=== PATIENT | female | born 1935 | race Caucasian/White ===

== ENCOUNTER 2019-03-15 09:16 | Emergency (ER) | payer OTHER ==
--- NOTE | 2019-03-15 10:41 | EDPHYS ---
Physician Documentation [facility] Name: Maxx Barr Age: 83 yrs Sex: Female : 1935 Arrival Date: 03/15/2019 Time: 09:18 Bed 11 Private MD: ED Physician Roberto Carlos Corey HPI: 03/15 10:34 This 83 yrs old Female presents to ER via Wheelchair with complaints of Knee ma2 Pain. 10:34 Onset: The symptoms/episode began/occurred gradually, 3 day(s) ago. Context: The ma2 problem was sustained at home. Associated signs and symptoms: Pertinent negatives: nausea, swelling, vomiting. Severity of symptoms: At their worst the symptoms were moderate, in the emergency department the symptoms are unchanged. The patient has not experienced similar symptoms in the past. Historical: - Allergies: 09:29 Latex, Natural Rubber; hb - Home Meds: 09:29 amlodipine 5 mg tab 1 tab once daily [Active]; aspirin 81 mg Oral chew 1 tab once daily hb [Active]; clopidogrel 75 mg Oral tab 1 tab once daily [Active]; cranberry 500 mg Oral cap [Active]; losartan 100 mg Oral tab 1 tab once daily [Active]; multivitamin with minerals 9 mg iron/15 mL Oral liqd [Active]; Osteo Bi-Flex 250-200 mg Oral tab [Active]; - PMHx: 09:29 Hyperlipidemia; Hypertension; UTI; hb - PSHx: 09:29 Heart stents; hb - Immunization history:: Adult Immunizations up to date. - Social history:: Smoking status: Patient/guardian denies using tobacco, Patient/guardian denies using alcohol, street drugs, The patient lives with family. - Ebola Screening: : No symptoms or risks identified at this time. - Family history:: not pertinent. ROS: 10:34 Constitutional: Negative for fever, chills, and weight loss. ma2 10:34 All other systems are negative. Exam: 10:34 Constitutional: This is a well developed, well nourished patient who is awake, alert, ma2 and in no acute distress. Chest/axilla: Normal chest wall appearance and motion. Nontender with no deformity. No lesions are appreciated. Cardiovascular: Regular rate and rhythm with a normal S1 and S2. No gallops, murmurs, or rubs. Normal PMI, no JVD. No pulse deficits. Respiratory: Lungs have equal breath sounds bilaterally, clear to auscultation and percussion. No rales, rhonchi or wheezes noted. No increased work of breathing, no retractions or nasal flaring. Abdomen/GI: Soft, non-tender, with normal bowel sounds. No distension or tympany. No guarding or rebound. No evidence of tenderness throughout. Skin: Warm, dry with normal turgor. Normal color with no rashes, no lesions, and no evidence of cellulitis. MS/ Extremity: right knee pain, ttp, mildly limited rom, no warmth or redness or effusion, Pulses equal, no cyanosis. Neurovascular intact. Full, normal range of motion. Neuro: Awake and alert, GCS 15, oriented to person, place, time, and situation. Cranial nerves II-XII grossly intact. Motor strength 5/5 in all extremities. Sensory grossly intact. Cerebellar exam normal. Normal gait. Vital Signs: 09:29 BP 152 / 85; Pulse 78; Resp 16; Temp 97.8; Pulse Ox 98% on R/A; Weight 65.77 kg; Height hb 5 ft. (152.40 cm); Pain 10; 09:29 Body Mass Index 28.32 (65.77 kg, 152.40 cm) hb MDM: 09:53 Patient medically screened. ma2 10:34 Differential diagnosis: fracture, sprain, foreign body. Data reviewed: vital signs, ma2 nurses notes. Counseling: I had a detailed discussion with the patient and/or guardian regarding: the historical points, exam findings, and any diagnostic results supporting the discharge/admit diagnosis, the presence of at least one elevated blood pressure reading (>120/80) during this emergency department visit, the need for outpatient follow up, for definitive care. 03/15 09:47 Order name: Knee Right 3 View XRAY ma2 Administered Medications: 10:48 Drug: TORadol 60 mg Route: IM; Site: right deltoid; hb 11:13 Follow up: Response: No adverse reaction; Pain is decreased hb Disposition: 03/15/19 10:40 Discharged to Home. Impression: Pain in right knee. - Condition is Stable. - Discharge Instructions: Knee Pain. - Prescriptions for Tylenol- Codeine #3 300-30 mg Oral Tablet - take 2 tablet by ORAL route every 6 hours As needed; 30 tablet. - Medication Reconciliation Form, Thank You Letter, Antibiotic Education, Prescription Opioid Use form. - Follow up: Private Physician; When: Tomorrow; Reason: Continuance of care. Signatures: Dispatcher [employer] EDSloane Silva RN RN Roberto Carlos Corey MD MD ma2 Corrections: (The following items were deleted from the chart) 11:16 10:40 03/15/2019 10:40 Discharged to Home. Impression: Pain in right knee. Condition is hb Stable. Forms are Medication Reconciliation Form, Thank You Letter, Antibiotic Education, Prescription Opioid Use. Follow up: Private Physician; When: Tomorrow; Reason: Continuance of care. ma2
--- NOTE | 2019-03-15 10:41 | ER ---
Nurse's Notes [facility] Name: Maxx Barr Age: 83 yrs Sex: Female : 1935 Arrival Date: 03/15/2019 Time: 09:18 Bed 11 Private MD: Diagnosis: Pain in right knee Presentation: 03/15 09:27 Presenting complaint: Right knee pain 10/10 x 3 days. Denies injury/fever. Transition hb of care: patient was not received from another setting of care. Onset of symptoms was March 13, 2019. Risk Assessment: Do you want to hurt yourself or someone else? Patient reports no desire to harm self or others. Initial Sepsis Screen: Does the patient meet any 2 criteria? No. Patient's initial sepsis screen is negative. Does the patient have a suspected source of infection? No. Patient's initial sepsis screen is negative. Care prior to arrival: None. 09:27 Method Of Arrival: Wheelchair hb 09:27 Acuity: BENITO 4 hb Triage Assessment: 09:28 General: Appears in no apparent distress. Behavior is calm, cooperative. Pain: Pain hb currently is 10 out of 10 on a pain scale. EENT: No signs and/or symptoms were reported regarding the EENT system. Neuro: Level of Consciousness is awake, alert, obeys commands, Oriented to person, place, time, situation. Cardiovascular: Capillary refill < 3 seconds Patient's skin is warm and dry. Respiratory: Airway is patent Respiratory effort is even, unlabored, Respiratory pattern is regular, symmetrical. GI: No signs and/or symptoms were reported involving the gastrointestinal system. : No signs and/or symptoms were reported regarding the genitourinary system. Derm: Skin is pink, warm \T\ dry. Musculoskeletal: Reports right knee pain. Historical: - Allergies: 09:29 Latex, Natural Rubber; hb - Home Meds: 09:29 amlodipine 5 mg tab 1 tab once daily [Active]; aspirin 81 mg Oral chew 1 tab once daily hb [Active]; clopidogrel 75 mg Oral tab 1 tab once daily [Active]; cranberry 500 mg Oral cap [Active]; losartan 100 mg Oral tab 1 tab once daily [Active]; multivitamin with minerals 9 mg iron/15 mL Oral liqd [Active]; Osteo Bi-Flex 250-200 mg Oral tab [Active]; - PMHx: 09:29 Hyperlipidemia; Hypertension; UTI; hb - PSHx: 09:29 Heart stents; hb - Immunization history:: Adult Immunizations up to date. - Social history:: Smoking status: Patient/guardian denies using tobacco, Patient/guardian denies using alcohol, street drugs, The patient lives with family. - Ebola Screening: : No symptoms or risks identified at this time. - Family history:: not pertinent. Screenin:32 Abuse screen: Denies threats or abuse. Denies injuries from another. Nutritional hb screening: No deficits noted. Tuberculosis screening: No symptoms or risk factors identified. Fall Risk None identified. Assessment: 09:32 General: see triage assessment. hb 10:30 Reassessment: Patient appears in no apparent distress at this time. Patient and/or hb family updated on plan of care and expected duration. Pain level reassessed. Patient is alert, oriented x 3, equal unlabored respirations, skin warm/dry/pink. Vital Signs: 09:29 BP 152 / 85; Pulse 78; Resp 16; Temp 97.8; Pulse Ox 98% on R/A; Weight 65.77 kg; Height hb 5 ft. (152.40 cm); Pain 10/10; 09:29 Body Mass Index 28.32 (65.77 kg, 152.40 cm) hb ED Course: 09:18 Patient arrived in ED. rg4 09:28 Triage completed. hb 09:29 Arm band placed on. hb 09:32 Patient has correct armband on for positive identification. Call light in reach. hb 09:32 No provider procedures requiring assistance completed. Patient did not have IV access hb during this emergency room visit. 09:53 Roberto Carlos Corey MD is Attending Physician. ma2 10:04 Sloane Wilkins, RN is Primary Nurse. hb 10:20 Knee Right 3 View XRAY In Process Unspecified. EDMS Administered Medications: 10:48 Drug: TORadol 60 mg Route: IM; Site: right deltoid; hb 11:13 Follow up: Response: No adverse reaction; Pain is decreased hb Outcome: 10:40 Discharge ordered by . ma2 11:15 Discharged to home via wheelchair, with family. hb 11:15 Condition: stable 11:15 Discharge instructions given to patient, family, Instructed on discharge instructions, follow up and referral plans. medication usage, Demonstrated understanding of instructions, follow-up care, medications, Prescriptions given X 1. 11:16 Patient left the ED. hb Signatures: Dispatcher [employer] Sloane Zarate RN RN hb Garcia, Rubi rg4 Roberto Carlos Corey MD MD ma2
[2019-03-15] MEDS ORDERED: KETOROLAC 30 MG/ML INJ ONE (10:46)
--- NOTE | 2019-03-15 11:08 | RAD REPORT ---
EXAM DESCRIPTION: RAD - Knee Right 3 View - 03/15/2019 10:20 am CLINICAL HISTORY: Right knee pain FINDINGS: No fracture or dislocation is seen. Chondrocalcinosis is present. Bony/calcific density along the lateral aspect of the knee could be deg enerative or secondary to prior trauma Large joint effusion is suspected. Osteophytes and joint space narrowing noted
[2019-03-15 17:18] VITALS: TEMP 98.3
[2019-03-15 17:20] VITALS: BP 109/75; O2SAT 99
== END 2019-03-15 11:16 | disposition home or self-care (01) ==
LOC: ER 09:16
DX: M25.561 Pain in right knee (principal); I10 Essential (primary) hypertension; E78.5 Hyperlipidemia, unspecified; Z91.040 Latex allergy status
CPT/HCPCS: 96372; 99283

== ENCOUNTER 2019-04-27 10:06 | Emergency (ER) | payer OTHER ==
[2019-04-27] MEDS ORDERED: IBUPROFEN 400 MG TAB ONE (10:53)
[2019-04-27] MEDS ORDERED: IBUPROFEN 200 MG TAB PO ONE (10:53)
[2019-04-27] MEDS ORDERED: HYDROCODONE/APAP 5/325 MG TAB ONE (10:55)
--- NOTE | 2019-04-27 11:45 | RAD REPORT ---
EXAM DESCRIPTION: RAD - Knee Right 3 View - 04/27/2019 11:23 am CLINICAL HISTORY: Pain;Swelling COMPARISON: Knee Right 3 View dated 03/15/2019 FINDINGS: Bones are osteopenic. No acute fracture change identified. Slight narrowing of the medial compartment seen with prominent marginal spurs at all compartments.Large joint effusion is present si milar to comparison. No foreign body or other soft tissue abnormality. Arterial tree calcifications are present. IMPRESSION: Osteopenic and prominent degenerative change as detailed. No fracture or acute bone find ing. Large joint effusion similar to comparison. Clinical concerns for internal derangement or occult bony injury could be further assessed with MR im aging.
--- NOTE | 2019-04-27 12:55 | RAD REPORT ---
EXAM DESCRIPTION: US - Extremity Venous Uni Ltd - 04/27/2019 12:36 pm CLINICAL HISTORY: Right knee pain COMPARISON: None. TECHNIQUE: Real-time sonographic evaluation of the right lower extremity deep venous systems was per formed. FINDINGS: Normal compressibility, flow augmentation, phasic flow and spontaneous flow are identified in the right lower extremity common femoral, superficial femoral, popliteal and posterior tibial vei ns. No intraluminal filling defects seen. Two hypoechoic masses in the popliteal fossa are present 18 mm and 20 mm in size. Both are likely com plex popliteal fossa cyst. No rupture or hemorrhage findings seen. IMPRESSION: No DVT in the right lower extremity. 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
--- NOTE | 2019-04-27 13:01 | ER ---
Nurse's Notes [facility] Name: Maxx Barr Age: 83 yrs Sex: Female : 1935 Arrival Date: 04/27/2019 Time: 10:11 Bed 19 Private MD: Cyril Burnett V Diagnosis: Pain in right knee;Effusion, right knee Presentation: 04/27 10:41 Presenting complaint: Patient states: R knee pain x 1 month. No known injury. Pt was ss seen a month ago for the same complaint and was told it was arthritis. Transition of care: patient was not received from another setting of care. Onset of symptoms was March 27, 2019. Risk Assessment: Do you want to hurt yourself or someone else? Patient reports no desire to harm self or others. Initial Sepsis Screen: Does the patient meet any 2 criteria? No. Patient's initial sepsis screen is negative. Does the patient have a suspected source of infection? No. Patient's initial sepsis screen is negative. Care prior to arrival: None. 10:41 Method Of Arrival: Wheelchair ss 10:41 Acuity: BENITO 4 ss Historical: - Allergies: 10:45 Latex, Natural Rubber; ss - Home Meds: 11:08 amlodipine 5 mg tab 1 tab once daily [Active]; aspirin 81 mg Oral chew 1 tab once daily ss [Active]; clopidogrel 75 mg Oral tab 1 tab once daily [Active]; cranberry 500 mg Oral cap [Active]; losartan 100 mg Oral tab 1 tab once daily [Active]; multivitamin with minerals 9 mg iron/15 mL Oral liqd [Active]; Osteo Bi-Flex 250-200 mg Oral tab [Active]; 11:10 Vitamin D3 oral oral [Active]; ss - PMHx: 10:45 Hyperlipidemia; Hypertension; UTI; ss - PSHx: 10:45 Heart stents; ss - Immunization history:: Adult Immunizations up to date. - Coronavirus screen:: The patient has NOT traveled to [place], [place], or [place] in the past 14 days. Proceed with normal triage process as indicated. - Social history:: Smoking status: Patient reports the use of cigarette tobacco products, denies chronic smoking, but will smoke occasionally. - Ebola Screening: : Patient denies exposure to infectious person Patient denies travel to an Ebola-affected area in the 21 days before illness onset. Screenin:05 Abuse screen: Denies threats or abuse. Nutritional screening: No deficits noted. ss Tuberculosis screening: No symptoms or risk factors identified. Fall Risk No fall in past 12 months (0 pts). Gait- Weak (10 pts.). Assessment: 10:57 General: Appears in no apparent distress. Behavior is calm, cooperative, appropriate ss for age. Pain: Complains of pain in right knee Pain does not radiate. Pain currently is 8 out of 10 on a pain scale. Quality of pain is described as aching, throbbing, Pain began 1 month ago Is continuous, Alleviated by nothing. Aggravated by increased activity, Also complains of swelling. Neuro: Level of Consciousness is awake, alert, obeys commands, Oriented to person, place, time, situation, Appropriate for age [employer] Work[employer] General are equal bilaterally Gait is unsteady, Speech is normal. Cardiovascular: Heart tones S1 S2 present Capillary refill < 3 seconds Pulses are palpable in right radial artery, right dorsalis pedis artery, left radial artery and left dorsalis pedis artery. Respiratory: Airway is patent Respiratory effort is even, unlabored, Respiratory pattern is regular, symmetrical, GI: Abdomen is non-distended, Bowel sounds present X 4 quads. Abd is soft and non tender X 4 quads. : No signs and/or symptoms were reported regarding the genitourinary system. Derm: Skin is intact, Skin is dry, Skin is pink, warm \T\ dry. Musculoskeletal: Circulation, motion, and sensation intact. Capillary refill Range of motion: limited in right knee Swelling present in right knee Reports the swelling started yesterday and is worse today. 11:52 Reassessment: Patient appears in no apparent distress at this time. Patient and/or family updated on plan of care and expected duration. Pain level reassessed. Patient is alert, oriented x 3, equal unlabored respirations, skin warm/dry/pink. Patient states that pain is not a steady 8/10 anymore, it is now intermittent Patient states symptoms have improved. 12:25 Reassessment: US at the bedside. sv Vital Signs: 10:15 BP 147 / 61; Pulse 85; Resp 18; Pulse Ox 96% ; Weight 65.77 kg; Height 5 ft. 0 in. (152.40 cm); Pain 8/10; 11:00 BP 135 / 64; Pulse 76; Resp 18; Pulse Ox 95% ; sv 12:29 BP 117 / 57; Pulse 73; Resp 16; Pulse Ox 95% ; sv 10:15 Body Mass Index 28.32 (65.77 kg, 152.40 cm) ED Course: 10:11 Patient arrived in ED. mr 10:12 Cyril Burnett MD is Private Physician. mr 10:23 Gerardo Graham PA is PHCP. cp 10:23 Gerardo Sierra MD is Attending Physician. cp 10:28 Kandi Alexander, [place] is Primary Nurse. ah 10:44 Triage completed. ss 10:45 Arm band placed on right wrist. ss 11:06 Patient has correct armband on for positive identification. Bed in low position. Call ss light in reach. Side rails up X 1. Adult w/ patient. 11:24 XRAY Knee RIGHT 3 view In Process Unspecified. EDMS 12:36 US Extremity Venous Unilateral Ltd In Process Unspecified. EDMS 12:38 Ultrasound completed. Patient tolerated well. sg3 13:00 Marcus Aquino MD is Referral Physician. cp 13:10 No provider procedures requiring assistance completed. Patient did not have IV access ah during this emergency room visit. 13:10 Edwin wrap to right knee. ah Administered Medications: 10:41 Drug: [place] 5 mg-325 mg 1 tabs Route: PO; ss 11:41 Follow up: Response: No adverse reaction; Pain is decreased ah 10:55 Drug: Ibuprofen 600 mg Route: PO; ss 11:41 Follow up: Response: No adverse reaction; Pain is decreased ah 10:56 CANCELLED (order changed): HYDROcodone-acetaminophen (5 mg-500 mg) 1 tabs PO once; RASS ss on ADMIN: Combtv4, Very Agttd3, Agttd2, Rstlss1, AlertClm0, Drwsy-1, Lt Sdtn-2, Mod Sdtn-3, Dp Sdtn-4, UnArsble-5 Outcome: 13:01 Discharge ordered by . cp 13:15 Discharged to home via wheelchair. 13:15 Condition: stable 13:15 Discharge instructions given to patient, family, Instructed on discharge instructions, follow up and referral plans. Demonstrated understanding of instructions, follow-up care, medications, Prescriptions given X 2. 13:19 Patient left the ED. ss Signatures: Dispatcher [employer] EDMS Marlene Garcia RN RN Caitlin Herrera mr Cele Palacios RN RN Gerardo Hernandez PA PA cp Godinez, Sarah [facility] [place] [facility] Kandi Alexander RN RN Corrections: (The following items were deleted from the chart) 13:18 13:17 Patient did not have IV access during this emergency room visit. [facility] 18 13:17 No provider procedures requiring assistance completed. [facility]
--- NOTE | 2019-04-27 13:01 | EDPHYS ---
Physician Documentation [facility] Name: Maxx Barr Age: 83 yrs Sex: Female : 1935 Arrival Date: 04/27/2019 Time: 10:11 Bed 19 Private MD: Cyril Burnett V ED Physician Gerardo Sierra HPI: 04/27 10:42 This 83 yrs old Female presents to ER via Unassigned with complaints of Knee cp Pain. 10:42 The patient presents with pain, swelling, tenderness. cp 10:42 The complaints affect the right knee. Context: resulted from an unknown cause, uses a cp walker. Onset: The symptoms/episode began/occurred 1 month(s) ago. Associated signs and symptoms: Pertinent negatives fever, rash, warmth. Historical: - Allergies: 10:45 Latex, Natural Rubber; ss - Home Meds: 11:08 amlodipine 5 mg tab 1 tab once daily [Active]; aspirin 81 mg Oral chew 1 tab once daily ss [Active]; clopidogrel 75 mg Oral tab 1 tab once daily [Active]; cranberry 500 mg Oral cap [Active]; losartan 100 mg Oral tab 1 tab once daily [Active]; multivitamin with minerals 9 mg iron/15 mL Oral liqd [Active]; Osteo Bi-Flex 250-200 mg Oral tab [Active]; 11:10 Vitamin D3 oral oral [Active]; ss - PMHx: 10:45 Hyperlipidemia; Hypertension; UTI; ss - PSHx: 10:45 Heart stents; ss - Immunization history:: Adult Immunizations up to date. - Coronavirus screen:: The patient has NOT traveled to [place], [place], or [place] in the past 14 days. Proceed with normal triage process as indicated. - Social history:: Smoking status: Patient reports the use of cigarette tobacco products, denies chronic smoking, but will smoke occasionally. - Ebola Screening: : Patient denies exposure to infectious person Patient denies travel to an Ebola-affected area in the 21 days before illness onset. ROS: 10:50 Constitutional: Negative for body aches, chills, fever. cp 10:50 Eyes: Negative for injury, pain, redness, and discharge. cp 10:50 ENT: Negative for drainage from ear(s), ear pain, sore throat, difficulty swallowing, difficulty handling secretions. 10:50 Cardiovascular: Negative for chest pain. 10:50 Respiratory: Negative for cough, shortness of breath, wheezing. 10:50 Abdomen/GI: Negative for abdominal pain, vomiting, diarrhea, constipation. 10:50 MS/extremity: Positive for decreased range of motion, pain, swelling, tenderness, of the right knee, Negative for injury or acute deformity. 10:50 Skin: Negative for cellulitis, rash. 10:50 Neuro: Negative for altered mental status, headache. 10:50 All other systems are negative. Exam: 11:00 Constitutional: The patient appears in no acute distress, alert, awake, non-toxic, well cp developed, well nourished. 11:00 Head/Face: Normocephalic, atraumatic. cp 11:00 Cardiovascular: Rate: normal. 11:00 Respiratory: the patient does not display signs of respiratory distress, Respirations: normal, labored breathing, is not present. 11:00 Musculoskeletal/extremity: Perfusion: the extremity is normally perfused throughout, Sensation intact. Joints: All joints are normal except the right knee displays effusion, pain at rest, painful range of motion, swelling, tenderness. 11:00 Skin: cellulitis, is not appreciated, no rash present. Vital Signs: 10:15 BP 147 / 61; Pulse 85; Resp 18; Pulse Ox 96% ; Weight 65.77 kg; Height 5 ft. 0 in. (152.40 cm); Pain 8/10; 11:00 BP 135 / 64; Pulse 76; Resp 18; Pulse Ox 95% ; sv 12:29 BP 117 / 57; Pulse 73; Resp 16; Pulse Ox 95% ; sv 10:15 Body Mass Index 28.32 (65.77 kg, 152.40 cm) MDM: 10:26 Patient medically screened. cp 11:00 Differential diagnosis: dislocation, closed fracture, contusion, DVT. cp 13:00 Data reviewed: vital signs, nurses notes, radiologic studies, plain films, ultrasound, cp and as a result, I will discharge patient. 13:00 Counseling: I had a detailed discussion with the patient and/or guardian regarding: the cp historical points, exam findings, and any diagnostic results supporting the discharge/admit diagnosis, radiology results, the need for outpatient follow up, for definitive care, a orthopedic surgeon, to return to the emergency department if symptoms worsen or persist or if there are any questions or concerns that arise at home. Response to treatment: the patient's symptoms have mildly improved after treatment. 04/27 10:41 Order name: XRAY Knee RIGHT 3 view; Complete Time: 12:06 cp 04/27 12:06 Interpretation: Report reviewed. cp 04/27 11:34 Order name: US Extremity Venous Unilateral Ltd; Complete Time: 13:00 cp 04/27 12:35 Order name: Edwin wrap-joint; Complete Time: 13:16 cp Administered Medications: 10:41 Drug: [place] 5 mg-325 mg 1 tabs Route: PO; ss 11:41 Follow up: Response: No adverse reaction; Pain is decreased ah 10:55 Drug: Ibuprofen 600 mg Route: PO; ss 11:41 Follow up: Response: No adverse reaction; Pain is decreased ah 10:56 CANCELLED (order changed): HYDROcodone-acetaminophen (5 mg-500 mg) 1 tabs PO once; RASS ss on ADMIN: Combtv4, Very Agttd3, Agttd2, Rstlss1, AlertClm0, Drwsy-1, Lt Sdtn-2, Mod Sdtn-3, Dp Sdtn-4, UnArsble-5 Disposition: 04/28 07:42 Co-signature as Attending Physician, Gerardo Sierra MD I agree with the assessment and leatha plan of care. Disposition: 04/27/19 13:01 Discharged to Home. Impression: Pain in right knee, Effusion, right knee. - Condition is Stable. - Discharge Instructions: Knee Effusion, Knee Pain. - Prescriptions for Mobic 7.5 mg Oral Tablet - take 1 tablet by ORAL route once daily take with food; 20 tablet. Tramadol 50 mg Oral Tablet - take 1 tablet by ORAL route every 8 hours as needed; 20 tablet. - Medication Reconciliation Form, Thank You Letter, Antibiotic Education, Prescription Opioid Use form. - Follow up: Marcus Aquino MD; When: 2 - 3 days; Reason: Recheck today's complaints. - Problem is new. - Symptoms have improved. Signatures: Dispatcher [employer] eGrardo Medrano MD MD cha Smirch, Shelby, RN RN Gerardo Hernandez PA PA cp Harris, Amy RN Corrections: (The following items were deleted from the chart) 04/27 10:56 10:41 HYDROcodone-acetaminophen (5 mg-500 mg) 1 tabs PO once; RASS on ADMIN: Combtv4, ss Very Agttd3, Agttd2, Rstlss1, AlertClm0, Drwsy-1, Lt Sdtn-2, Mod Sdtn-3, Dp Sdtn-4, UnArsble-5 ordered. cp 10:56 10:56 HYDROcodone-acetaminophen (5 mg-500 mg) 1 tabs PO once; RASS on ADMIN: Combtv4, ss Very Agttd3, Agttd2, Rstlss1, AlertClm0, Drwsy-1, Lt Sdtn-2, Mod Sdtn-3, Dp Sdtn-4, UnArsble-5 ordered. ss 13:19 13:01 04/27/2019 13:01 Discharged to Home. Impression: Pain in right knee; Effusion, ss right knee. Condition is Stable. Forms are Medication Reconciliation Form, Thank You Letter, Antibiotic Education, Prescription Opioid Use. Follow up: Marcus Aquino; When: 2 - 3 days; Reason: Recheck today's complaints. Problem is new. Symptoms have improved. cp
[2019-04-27 13:54] VITALS: O2SAT 95
[2019-04-27 13:56] VITALS: BP 117/57
== END 2019-04-27 13:19 | disposition home or self-care (01) ==
LOC: ER 10:06
DX: M25.461 Effusion, right knee (principal); I10 Essential (primary) hypertension; E78.5 Hyperlipidemia, unspecified; Z79.82 Long term (current) use of aspirin; Z91.040 Latex allergy status; Z91.048 Other nonmedicinal substance allergy status; Z95.818 Presence of other cardiac implants and grafts
CPT/HCPCS: 93971; 99284

== ENCOUNTER 2020-10-26 15:10 | Inpatient (IN) | payer OTHER ==
--- OUTSIDE RECORDS SUMMARY | 2020-10-26 15:13 | XMS REPORT | Continuity of Care Document ---
:1935 Author Organization [facility] t Address [address] [place] [address] Care Team Providers Name Role Phone Zeina ABDI L Attending Clinician Problems This patient has no known problems. Allergies, Adverse Reactions, Alerts This patient has no known allergies or adverse reactions. Medications This patient has no known medications. Procedures This patient has no known procedures. Encounters Start End Encounter Admission Attending Care Care Encounter Source Date/Time Date/Time Type Type Clinicians Facility Department ID 2019-05-01 2019-05-01 Office CLAUDIA Pastrana [id number] 10:15:24 11:09:57 Visit [facility] [id number] Surgical [id number] Specialti [id number] [address] Results This patient has no known results.
--- NOTE | 2020-10-26 17:05 | RAD REPORT ---
EXAM DESCRIPTION: CT - Head Brain Wo Cont - 10/26/2020 4:36 pm CLINICAL HISTORY: Head injury status post fall COMPARISON: 2018 TECHNIQUE: Computed axial tomography of the head was obtained. IV contrast was not requested. All CT scans are performed using dose optimization technique as appropriate and may include automated exposure control or mA/KV adjustment according to patient size. FINDINGS: An intracranial bleed is not seen . The ventricles are normal in caliber. No extra-axial fluid collection is noted. Mild low-density areas within periventricular, deep and subcortical white matter likely represent isc hemic changes secondary to small vessel disease. Fluid within the sinuses/ mastoids is not seen. IMPRESSION: No acute intracranial abnormality is seen. If patient's symptoms persist MRI of the bra in would be recommended.
[2020-10-26 18:23] LABS: Absolute Lymphocytes (CBC) 0.3 K/uL (0.7-4.9); Basophils % 0.1 % (0-1.3); Hematocrit 32.1 % (36.0-45.0); Lymphocytes % 1.9 % (15.3-44.8); MPV 8.4 fL (7.6-11.3); RBC Red Blood Cell Count 3.81 M/uL (3.86-4.86)
[2020-10-26 18:25] LABS: Protime INR 0.96
[2020-10-26 18:46] LABS: ALT/SGPT 50 U/L (12-78); AST/SGOT 71 U/L (15-37); Albumin 3.5 g/dL (3.4-5.0); Alkaline Phosphatase 89 U/L (45-117); BUN Blood Urea Nitrogen 27 mg/dL (7-18); Bicarbonate 27 mmol/L (21-32); Bilirubin Direct 0.2 mg/dL (0-0.2); Bilirubin Total 0.7 mg/dL (0.2-1.0); Creatine Phosphokinase 772 U/L (26-192); Glucose Level 117 mg/dL (74-106); Magnesium 2.3 mg/dL (1.8-2.4); NT PRO-BNP 1172 pg/mL (<450); Protein, Total 7.1 g/dL (6.4-8.2); Sodium Level 139 mmol/L (136-145); Troponin (Emerg Dept Use Only) < 0.02 ng/mL (0.0-0.045)
[2020-10-26 18:48] LABS: Potassium 2.8 mmol/L (3.5-5.1)
[2020-10-26 19:22] LABS: Blood Morphology Comment NOT SEEN (NOT SEEN); Platelet Estimate ADEQ
--- NOTE | 2020-10-26 20:18 | RAD REPORT ---
EXAM DESCRIPTION: Kermit Single View10/26/2020 6:15 pm CLINICAL HISTORY: Weakness COMPARISON: 2018 FINDINGS: A small lucency beneath right hemidiaphragm. Lungs appear clear. Heart is borderline enlarged IMPRESSION: Small lucency beneath right hemidiaphragm may simply represent an area of subsegmental a telectasis. Subtle pneumoperitoneum could also have this appearance. It is recommended that the patie nt have an upright abdominal x-ray for re-evaluation. Exam was discussed with Nikolai in the ER
--- NOTE | 2020-10-26 21:05 | RAD REPORT ---
EXAM DESCRIPTION: RAD - Abdomen Single View - 10/26/2020 9:00 pm CLINICAL HISTORY: Weakness/abnormal radiologic exam FINDINGS: Free air is not seen beneath the diaphragm.
--- NOTE | 2020-10-26 22:01 | ER ---
Nurse's Notes [facility] Name: Maxx Barr Age: 84 yrs Sex: Female : 1935 Arrival Date: 10/26/2020 Time: 15:12 Bed 24 Private MD: Diagnosis: Hypokalemia;Dehydration;Rhabdomyolysis;Fall on same level, unspecified;Weakness Presentation: 10/26 16:18 Chief complaint: Pt's son states "my brother checked on her today around 1130 today and aa5 she was lying down in the living room floor and unable to get up". Pt currently A\\T\\O x 4, pt denies any pain. Pt takes Plavix. Pt states "I just fell down from the chair". 16:19 Coronavirus screen: At this time, the client does not indicate any symptoms associated aa5 with coronavirus-19. Ebola Screen: Patient negative for fever greater than or equal to 101.5 degrees Fahrenheit, and additional compatible Ebola Virus Disease symptoms. Initial Sepsis Screen: Does the patient meet any 2 criteria? No. Patient's initial sepsis screen is negative. Does the patient have a suspected source of infection? No. Patient's initial sepsis screen is negative. Risk Assessment: Do you want to hurt yourself or someone else? Unable to obtain. Onset of symptoms was October 26, 2020. 16:19 Method Of Arrival: Wheelchair aa5 16:19 Acuity: BENITO 3 aa5 Historical: - Allergies: 16:18 Latex, Natural Rubber; aa5 - PMHx: 16:18 Hyperlipidemia; Hypertension; UTI; aa5 - PSHx: 16:23 heart stent; hysterectomy; R rotator cuff; Tumor removed from Bladder; Skin cancer aa5 removed; Eye implants; - Immunization history:: Client reports receiving the 2nd dose of the Covid vaccine. - Social history:: Smoking status: Patient reports the use of cigarette tobacco products, denies chronic smoking, but will smoke occasionally. Screenin:58 Abuse screen: Denies threats or abuse. Nutritional screening: No deficits noted. ap3 Tuberculosis screening: No symptoms or risk factors identified. Fall Risk Fall in past 12 months (25 points). Secondary diagnosis (15 points) impaired mobility, IV access (20 points). Ambulatory Aid- None/Bed Rest/Nurse Assist (0 pts). Gait- Impaired (20 pts.). Mental Status- Oriented to own ability (0 pts). Total Torres Fall Scale indicates High Risk Score (45 or more points). Fall prevention measures have been instituted. Side Rails Up X 2 Frequent Obs/Assessments Occuring Family Present and informed to notify staff if the need to leave the bedside As available patient and family educated on Fall Prevention Program and Strategies. Primary Survey: 18:10 NO uncontrolled hemorrhage observed. A: The patient is alert. Airway: patent. ap3 Breathing/Chest: Respiratory pattern: regular, Respiratory effort: spontaneous, unlabored, Breath sounds: clear, bilaterally. Circulation: Skin temperature: warm. Disability. Reassessment Airway Airway Patent Breathing/Chest Respiratory pattern Regular Respiratory effort Unlabored. Assessment: 17:56 General: Appears in no apparent distress. comfortable, Behavior is calm, cooperative. ap3 Pain: Denies pain. Neuro: Level of Consciousness is awake, alert, obeys commands, Oriented to person, place, time, situation, Moves all extremities. Gait is unsteady, Speech is normal. Cardiovascular: Capillary refill < 3 seconds Patient's skin is warm and dry. Respiratory: Airway is patent Respiratory effort is even, unlabored, Respiratory pattern is regular, symmetrical, Denies cough, shortness of breath. GI: Reports nausea. : No signs and/or symptoms were reported regarding the genitourinary system. EENT: No signs and/or symptoms were reported regarding the EENT system. Musculoskeletal: Reports weakness in generalized. 19:00 Reassessment: Patient appears in no apparent distress at this time. Patient and/or jb4 family updated on plan of care and expected duration. Pain level reassessed. Patient is alert, oriented x 3, equal unlabored respirations, skin warm/dry/pink. 20:00 Reassessment: Patient appears in no apparent distress at this time. Patient and/or jb4 family updated on plan of care and expected duration. Pain level reassessed. Patient is alert, oriented x 3, equal unlabored respirations, skin warm/dry/pink. 21:00 Reassessment: Patient appears in no apparent distress at this time. Patient and/or jb4 family updated on plan of care and expected duration. Pain level reassessed. Patient is alert, oriented x 3, equal unlabored respirations, skin warm/dry/pink. 22:00 Reassessment: Pt is resting in bed with eyes closed, respirations are even and jb4 unlabored with no s/s of pain or distress noted. 23:00 Reassessment: Patient appears in no apparent distress at this time. No changes from jb4 previously documented assessment. Patient and/or family updated on plan of care and expected duration. Pain level reassessed. 10/27 00:00 Reassessment: Patient appears in no apparent distress at this time. No changes from jb4 previously documented assessment. Patient and/or family updated on plan of care and expected duration. Pain level reassessed. Vital Signs: 10/26 16:19 BP 108 / 57; Pulse 82; Resp 18 S; Pulse Ox 96% on R/A; aa5 18:11 BP 122 / 63; Pulse 77; Resp 19; Pulse Ox 96% on R/A; ap3 18:42 BP 122 / 63; Pulse 77; Resp 21; Pulse Ox 96% on R/A; ap3 18:43 Temp 98.2(O); ap3 19:00 BP 136 / 61; Pulse 81; Resp 16; Pulse Ox 98% on R/A; jb4 20:00 BP 134 / 59; Pulse 78; Resp 20; Pulse Ox 93% on R/A; jb4 21:00 BP 119 / 55; Pulse 77; Resp 14; Pulse Ox 95% on R/A; jb4 23:00 BP 147 / 90; Pulse 79; Resp 20; Pulse Ox 97% on R/A; jb4 10/27 00:00 BP 140 / 68; Pulse 82; Resp 15; Pulse Ox 95% on R/A; jb4 [place] Coma Score: 10/26 19:00 Eye Response: spontaneous(4). Verbal Response: oriented(5). Motor Response: obeys jb4 commands(6). Total: 15. 20:00 Eye Response: spontaneous(4). Verbal Response: oriented(5). Motor Response: obeys jb4 commands(6). Total: 15. :00 Eye Response: spontaneous(4). Verbal Response: oriented(5). Motor Response: obeys jb4 commands(6). Total: 15. :00 Eye Response: spontaneous(4). Verbal Response: oriented(5). Motor Response: obeys jb4 commands(6). Total: 15. 10/27 00:00 Eye Response: spontaneous(4). Verbal Response: oriented(5). Motor Response: obeys jb4 commands(6). Total: 15. Trauma Score (Adult): 10/26 19:00 Eye Response: spontaneous(1); Verbal Response: oriented(1); Motor Response: obeys jb4 commands(2); Systolic BP: > 89 mm Hg(4); Respiratory Rate: 10 to 29 per min(4); [place] Score: 15; Trauma Score: 12 20:00 Eye Response: spontaneous(1); Verbal Response: oriented(1); Motor Response: obeys jb4 commands(2); Systolic BP: > 89 mm Hg(4); Respiratory Rate: 10 to 29 per min(4); [place] Score: 15; Trauma Score: 12 21:00 Eye Response: spontaneous(1); Verbal Response: oriented(1); Motor Response: obeys jb4 commands(2); Systolic BP: > 89 mm Hg(4); Respiratory Rate: 10 to 29 per min(4); [place] Score: 15; Trauma Score: 12 23:00 Eye Response: spontaneous(1); Verbal Response: oriented(1); Motor Response: obeys jb4 commands(2); Systolic BP: > 89 mm Hg(4); Respiratory Rate: 10 to 29 per min(4); [place] Score: 15; Trauma Score: 12 10/27 00:00 Eye Response: spontaneous(1); Verbal Response: oriented(1); Motor Response: obeys jb4 commands(2); Systolic BP: > 89 mm Hg(4); Respiratory Rate: 10 to 29 per min(4); [place] Score: 15; Trauma Score: 12 ED Course: 10/26 15:12 Patient arrived in ED. ds1 16:18 Arm band placed on. aa5 16:21 Triage completed. aa5 16:36 CT Head Brain wo Cont In Process Unspecified. EDMS 17:23 Dawn Barron, [place] is Primary Nurse. ap3 17:35 Nikolai Rush NP is PHCP. pm1 17:35 Gerardo Sierra MD is Attending Physician. pm1 17:56 Inserted saline lock: 22 gauge in right antecubital area, using aseptic technique. ap3 Blood collected. 18:00 Patient has correct armband on for positive identification. Bed in low position. Call ap3 light in reach. Side rails up X2. Adult w/ patient. school lunch monitor on. Pulse ox on. NIBP on. Door closed. Noise minimized. 18:11 Patient maintains SpO2 saturation greater than 95% on room air. ap3 18:15 XRAY Chest (1 view) In Process Unspecified. EDMS 21:00 XRAY Abdomen 1 View: Upright 1 view In Process Unspecified. EDMS 22:00 Cyril Burnett MD is Hospitalizing Provider. pm1 22:27 Kingsley cath inserted, using sterile technique, 16 Fr., by tn, balloon inflated, to ms4 gravity drainage, urine specimen collected. returned karley urine. Patient tolerated well. 22:40 CT Stone Protocol In Process Unspecified. EDMS 08 00:47 No provider procedures requiring assistance completed. Patient admitted, IV remains in jb4 place. Administered Medications: 10/26 22:28 Drug: NS 0.9% 500 ml Route: IV; Rate: bolus; Site: right antecubital; jb4 23:20 Follow up: Response: No adverse reaction; IV Status: Completed infusion; IV Intake: jb4 500ml 22:28 Drug: Potassium Chloride 20 mEq Route: IV; Rate: calculated rate; Site: right jb4 antecubital; 23:28 Follow up: Response: No adverse reaction; IV Status: Completed infusion; IV Intake: jb4 100ml 22:29 Not Given (Physician Discretion): NS 0.9% 1000 ml IV at 100 ml/hr once jb4 10/27 00:07 Drug: Rocephin (cefTRIAXone) 1 grams Route: IV; Rate: calculated rate; Site: right jb4 antecubital; 00:09 Follow up: IV Status: Completed infusion; IV Intake: 10ml jb4 00:47 Follow up: Response: No adverse reaction jb4 00:14 Drug: Potassium Effervescent Tablet 50 mEq Route: PO; jb4 00:46 Follow up: Response: No adverse reaction jb4 00:14 Drug: NS 0.45 % 1000 ml Route: IV; Rate: 75 ml/hr; Site: right antecubital; jb4 00:46 Follow up: Response: No adverse reaction; IV Status: Infusion continued upon admission jb4 Intake: 10/26 23:20 IV: 500ml; Total: 500ml. jb4 23:28 IV: 100ml; Total: 600ml. jb4 10/27 00:09 IV: 10ml; Total: 610ml. jb4 Output: 10/26 22:27 Urine: 800ml (Kingsley); Total: 800ml. ms4 Outcome: 22:00 Decision to Hospitalize by Provider. pm1 10/27 00:47 Admitted to ER Hold. Please see [facility] for further documentation. jb4 Condition: stable Discharge instructions given to patient, family, Instructed on the need for admit, Demonstrated understanding of instructions. 00:48 Patient's length of stay in the Emergency Department was greater than 2 hours. Pt jb4 admitted.Patient's length of stay extended due to 18:15 Patient left the ED. ph Signatures: Dispatcher [employer] [facility] Sita Grullon ds1 Sasha Burns, RN RN aa5 Milady Cronin RN RN ph Nikolai Rush, RANDA TOUCHER UP pm1 Erasto Barrios RN RN jb4 Dawn Barron RN RN ap3 Alcira Maurer RN RN ms4 Corrections: (The following items were deleted from the chart) 10/26 16:21 16:18 Chief complaint: Pt's son states "my brother checked on her today around aa5 aa5 16:21 16:19 Acuity: BENITO 3 aa5 aa5 16:25 16:19 Acuity: BENITO 2 aa5 aa5 16:26 16:18 Chief complaint: Pt's son states "my brother checked on her today around 1130 aa5 today and she was lying down in the living room floor". Last known normal was yesterday at 1730. aa5
--- NOTE | 2020-10-26 22:01 | EDPHYS ---
Physician Documentation [facility] Name: Maxx Barr Age: 84 yrs Sex: Female : 1935 Arrival Date: 10/26/2020 Time: 15:12 Bed 24 Private MD: REMI Physician Gerardo Sierra HPI: 10/26 17:54 This 84 yrs old Female presents to ER via Wheelchair with complaints of Fall pm1 Injury, Weakness. 17:54 Details of fall: The patient fell from seated position, out of a chair. Onset: The pm1 symptoms/episode began/occurred yesterday. Associated injuries: The patient sustained no obvious injury. Severity of symptoms: in the emergency department the symptoms are actually worse. The patient has not recently seen a physician, the patient's primary care provider is Dr. Burnett. Patient presented to ER with generalized weakness, patient was sitting in a chair and slid down to the ground this occurred yesterday and today however today she was unable to get up from the floor and was down on the ground for an unspecified amount of time. She was found by her son who was checking on her and he brought her to the ER for evaluation. patient reported some nausea prior to falling today she has no other complaints. No complaints of any kind of pain. Historical: - Allergies: 16:18 Latex, Natural Rubber; aa5 - PMHx: 16:18 Hyperlipidemia; Hypertension; UTI; aa5 - PSHx: 16:23 heart stent; hysterectomy; R rotator cuff; Tumor removed from Bladder; Skin cancer aa5 removed; Eye implants; - Immunization history:: Client reports receiving the 2nd dose of the Covid vaccine. - Social history:: Smoking status: Patient reports the use of cigarette tobacco products, denies chronic smoking, but will smoke occasionally. ROS: 17:54 Constitutional: Negative for fever, chills, and weight loss, Cardiovascular: Negative pm1 for chest pain, palpitations, and edema, Respiratory: Negative for shortness of breath, cough, wheezing, and pleuritic chest pain, Back: Negative for injury and pain, MS/Extremity: Negative for injury and deformity, Skin: Negative for injury, rash, and discoloration. 17:54 : Negative for injury, bleeding, discharge, and swelling, Neuro: Negative for headache, weakness, numbness, tingling, and seizure. 17:54 Abdomen/GI: Positive for nausea, Negative for abdominal pain, vomiting, diarrhea, constipation. 17:54 All other systems are negative. Exam: 17:54 Constitutional: This is a well developed, well nourished patient who is awake, alert, pm1 and in no acute distress. Head/Face: Normocephalic, atraumatic. 17:54 Back: No spinal tenderness. No costovertebral tenderness. Full range of motion. Skin: Warm, dry with normal turgor. Normal color with no rashes, no lesions, and no evidence of cellulitis. MS/ Extremity: Pulses equal, no cyanosis. Neurovascular intact. Full, normal range of motion. 17:54 Eyes: Exam is negative for acute changes, Extraocular movements: no acute changes, Conjunctiva: normal, no acute changes, no injection, Sclera: no acute changes, icterus, is not appreciated. 17:54 ENT: Exam is negative for acute changes, Mouth: Lips: normal, Oral mucosa: normal, pink and intact, moist. 17:54 Chest/axilla: Exam negative for acute changes, Inspection: normal, Palpation: is normal. 17:54 Cardiovascular: Exam negative for acute changes, Rate: normal, Rhythm: regular, Pulses: no pulse deficits are appreciated, Edema: is not appreciated. 17:54 Respiratory: Exam negative for acute changes, shortness of breath, Breath sounds: are clear throughout. 17:54 Abdomen/GI: Exam negative for acute changes, Inspection: abdomen appears normal, Palpation: abdomen is soft and non-tender. 17:54 Neuro: Exam negative for acute changes, Orientation: is normal, Mentation: is normal, Motor: is normal. Vital Signs: 16:19 BP 108 / 57; Pulse 82; Resp 18 S; Pulse Ox 96% on R/A; aa5 18:11 BP 122 / 63; Pulse 77; Resp 19; Pulse Ox 96% on R/A; ap3 18:42 BP 122 / 63; Pulse 77; Resp 21; Pulse Ox 96% on R/A; ap3 18:43 Temp 98.2(O); ap3 19:00 BP 136 / 61; Pulse 81; Resp 16; Pulse Ox 98% on R/A; jb4 20:00 BP 134 / 59; Pulse 78; Resp 20; Pulse Ox 93% on R/A; jb4 21:00 BP 119 / 55; Pulse 77; Resp 14; Pulse Ox 95% on R/A; jb4 23:00 BP 147 / 90; Pulse 79; Resp 20; Pulse Ox 97% on R/A; jb4 10/27 00:00 BP 140 / 68; Pulse 82; Resp 15; Pulse Ox 95% on R/A; jb4 Dionicio Coma Score: 10/26 19:00 Eye Response: spontaneous(4). Verbal Response: oriented(5). Motor Response: obeys jb4 commands(6). Total: 15. 20:00 Eye Response: spontaneous(4). Verbal Response: oriented(5). Motor Response: obeys jb4 commands(6). Total: 15. 21:00 Eye Response: spontaneous(4). Verbal Response: oriented(5). Motor Response: obeys jb4 commands(6). Total: 15. 23:00 Eye Response: spontaneous(4). Verbal Response: oriented(5). Motor Response: obeys jb4 commands(6). Total: 15. 10/27 00:00 Eye Response: spontaneous(4). Verbal Response: oriented(5). Motor Response: obeys jb4 commands(6). Total: 15. Trauma Score (Adult): 10/26 19:00 Eye Response: spontaneous(1); Verbal Response: oriented(1); Motor Response: obeys jb4 commands(2); Systolic BP: > 89 mm Hg(4); Respiratory Rate: 10 to 29 per min(4); Dionicio Score: 15; Trauma Score: 12 20:00 Eye Response: spontaneous(1); Verbal Response: oriented(1); Motor Response: obeys jb4 commands(2); Systolic BP: > 89 mm Hg(4); Respiratory Rate: 10 to 29 per min(4); Dionicio Score: 15; Trauma Score: 12 21:00 Eye Response: spontaneous(1); Verbal Response: oriented(1); Motor Response: obeys jb4 commands(2); Systolic BP: > 89 mm Hg(4); Respiratory Rate: 10 to 29 per min(4); Dionicio Score: 15; Trauma Score: 12 23:00 Eye Response: spontaneous(1); Verbal Response: oriented(1); Motor Response: obeys jb4 commands(2); Systolic BP: > 89 mm Hg(4); Respiratory Rate: 10 to 29 per min(4); Paris Score: 15; Trauma Score: 12 10/27 00:00 Eye Response: spontaneous(1); Verbal Response: oriented(1); Motor Response: obeys jb4 commands(2); Systolic BP: > 89 mm Hg(4); Respiratory Rate: 10 to 29 per min(4); Dionicio Score: 15; Trauma Score: 12 MDM: 10/26 17:35 Patient medically screened. pm1 21:15 Counseling: I had a detailed discussion with the patient and/or guardian regarding: the pm1 historical points, exam findings, and any diagnostic results supporting the discharge/admit diagnosis, lab results, radiology results, the need for further work-up and treatment in the hospital. 21:38 Data reviewed: vital signs. Data interpreted: Pulse oximetry: on room air is 96 %. pm1 Interpretation: normal. 21:38 Physician consultation: Cyril Burnett MD was called at 21:38, was contacted at 21:38, pm1 regarding admission, patient's condition, and will see patient tomorrow. 22:23 ED course: Patient with 800 mL of urine present with straight catheter. Will order CT pm1 stone protocol to r/o obstruction. 10/27 00:01 ED course: CT result reviewed. Rectal examination: No constipation or fecal impaction pm1 noted on digital rectal examination. Patient with large amount of stool in diaper. 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 Current CT findings of left hydronephrosis and mild left hydroureter is likely chronic findings. 10/26 17:54 Order name: Basic Metabolic Panel; Complete Time: 18:49 pm1 10/26 17:54 Order name: CBC with Diff; Complete Time: 19:47 pm1 10/26 17:54 Order name: LFT's; Complete Time: 18:49 pm1 10/26 17:54 Order name: Magnesium; Complete Time: 18:49 pm1 10/26 17:54 Order name: NT PRO-BNP; Complete Time: 18:49 pm1 10/26 17:54 Order name: PT-INR; Complete Time: 18:42 pm1 10/26 17:54 Order name: Troponin (emerg Dept Use Only); Complete Time: 18:49 pm1 10/26 17:54 Order name: CPK; Complete Time: 18:49 pm1 10/26 17:54 Order name: Procalcitonin; Complete Time: 18:50 pm1 10/26 17:54 Order name: Lactate; Complete Time: 18:42 pm1 10/26 17:54 Order name: Urine Microscopic Only; Complete Time: 23:16 pm1 10/26 19:22 Order name: Manual Differential; Complete Time: 19:47 EDMS 10/26 22:26 Order name: Urine Dipstick-Ancillary; Complete Time: 22:55 EDMS 10/26 22:28 Order name: COVID-19 : Document "Date of Symptom Onset" if Symptomatic. tt3 10/26 16:27 Order name: CT Head Brain wo Cont; Complete Time: 17:36 aa5 10/26 17:54 Order name: XRAY Chest (1 view); Complete Time: 20:22 pm1 10/26 17:54 Order name: EKG; Complete Time: 17:54 pm1 10/26 17:54 Order name: Cardiac monitoring; Complete Time: 17:56 pm1 10/26 20:16 Order name: XRAY Abdomen 1 View: Upright 1 view; Complete Time: 21:13 pm1 10/26 22:22 Order name: CT Stone Protocol pm1 10/27 01:42 Order name: SARS-COV-2 RT PCR; Complete Time: 01:57 EDMS 10/27 05:20 Order name: CBC with Automated Diff EDMS 10/27 05:38 Order name: Comprehensive Metabolic Panel EDMS 10/27 11:24 Order name: MRI EDMS 10/26 17:54 Order name: EKG - Nurse/Tech; Complete Time: 00:17 pm1 10/26 17:54 Order name: IV Saline Lock; Complete Time: 17:56 pm1 10/26 17:54 Order name: Labs collected and sent; Complete Time: 17:56 pm1 10/26 17:54 Order name: O2 Per Protocol; Complete Time: 17:56 pm1 10/26 17:54 Order name: O2 Sat Monitoring; Complete Time: 17:56 pm1 10/26 17:54 Order name: Urine Dipstick-Ancillary (obtain specimen); Complete Time: 23:01 pm1 10/26 19:51 Order name: Straight Cath - Urine; Complete Time: 23:01 pm1 Administered Medications: 10/26 22:28 Drug: NS 0.9% 500 ml Route: IV; Rate: bolus; Site: right antecubital; jb4 23:20 Follow up: Response: No adverse reaction; IV Status: Completed infusion; IV Intake: jb4 500ml 22:28 Drug: Potassium Chloride 20 mEq Route: IV; Rate: calculated rate; Site: right jb4 antecubital; 23:28 Follow up: Response: No adverse reaction; IV Status: Completed infusion; IV Intake: jb4 100ml 22:29 Not Given (Physician Discretion): NS 0.9% 1000 ml IV at 100 ml/hr once jb4 10/27 00:07 Drug: Rocephin (cefTRIAXone) 1 grams Route: IV; Rate: calculated rate; Site: right jb4 antecubital; 00:09 Follow up: IV Status: Completed infusion; IV Intake: 10ml jb4 00:47 Follow up: Response: No adverse reaction jb4 00:14 Drug: Potassium Effervescent Tablet 50 mEq Route: PO; jb4 00:46 Follow up: Response: No adverse reaction jb4 00:14 Drug: NS 0.45 % 1000 ml Route: IV; Rate: 75 ml/hr; Site: right antecubital; jb4 00:46 Follow up: Response: No adverse reaction; IV Status: Infusion continued upon admission jb4 Disposition: 10/28 07:29 Co-signature as Attending Physician, Gerardo Sierra MD I agree with the assessment and leatha plan of care. Disposition Summary: 10/26/20 22:00 Hospitalization Ordered Hospitalization Status: Inpatient Admission pm1 Provider: Cyril Burnett pm1 Condition: Stable pm1 Problem: new pm1 Symptoms: have improved pm1 Bed/Room Type: Standard pm1 Location: Telemetry/MedSurg (Inpatient)(10/27/20 14:43) dw Room Assignment: 221(10/27/20 14:43) dw Diagnosis - Hypokalemia pm1 - Dehydration pm1 - Rhabdomyolysis pm1 - Fall on same level, unspecified pm1 - Weakness pm1 Forms: - Medication Reconciliation Form pm1 - SBAR form pm1 Signatures: Dispatcher [employer] Elvia Vásquez RN Mahsa Pickard, RN RN Gerardo Aguilar MD MD cha Calderon, Audri, RN RN aa5 Nikolai Rush, [employer] MANAGER pm1 Erasto Barrios RN RN jb4 Corrections: (The following items were deleted from the chart) 10/26 22: 22:00 Telemetry/MedSurg (Inpatient) pm1 mw : 22:00 pm1 mw 10/27 14:43 10/26 22:21 [facility] 10/27 14:43 10/26 22:21 [facility] [place]
[2020-10-26] MEDS ORDERED: NACHLORIDE 0.45% 1,000 ML IV ONE (22:11)
[2020-10-26] MEDS ORDERED: POTASSIUM 25 MEQ EFFERV TAB ONE (22:11)
[2020-10-26] MEDS ORDERED: KCL 20 MEQ/100 mL IVPB 20 MEQ/100 ML BAG IV ONE (22:12)
[2020-10-26] MEDS ORDERED: NA CHLORIDE 0.9% 500 ML ONE (22:12)
[2020-10-26] MEDS ORDERED: SODIUM BICARB 50 MEQ/50ML VIAL ONE (22:12)
[2020-10-26 22:27] LABS: Urine Blood Trace-intact (Negative); Urine Glucose Negative (Negative); Urine Protein 2+ (Negative); Urine pH 5.5 (5.0-7.0)
[2020-10-26 23:14] LABS: Urine Bacteria 20-50 /HPF (<20); Urine RBC 20-50 /HPF (NONE SEEN); Urine Urothelial Cells <5 /HPF (NONE SEEN)
[2020-10-26] MEDS ORDERED: CEFTRIAXONE/SWI 1gm 1 GM/10 ML SYR ONE (23:57)
[2020-10-27] MEDS: NACHLORIDE 0.45% 1,000 ML with NA BICARB 8.4% 150 MEQ IV SCH ×4 (00:43→16:03)
[2020-10-27 01:17] VITALS: BMI 24.5
[2020-10-27 05:17] LABS: Absolute Lymphocytes (CBC) 0.3 K/uL (0.7-4.9); Hematocrit 30.9 % (36.0-45.0); Lymphocytes % 2.3 % (15.3-44.8); MPV 8.4 fL (7.6-11.3)
[2020-10-27 05:38] LABS: Albumin 2.8 g/dL (3.4-5.0); Bilirubin Total 0.5 mg/dL (0.2-1.0); Potassium 3.9 mmol/L (3.5-5.1); Protein, Total 6.1 g/dL (6.4-8.2)
[2020-10-27] MEDS: THYROID 30 MG TAB PO SCH (07:00)
[2020-10-27] MEDS: Cranberry 500 MG Capsule PO SCH (09:00)
[2020-10-27] MEDS: CEFTRIAXONE/SWI 1gm 1 GM/10 ML SYR IV SCH ×2 (09:00→21:36)
[2020-10-27] MEDS: Osteo Bi-Flex Caplet PO SCH (09:00)
[2020-10-27] MEDS: CLOPIDOGREL 75 MG TABLET PO SCH (09:00)
[2020-10-27] MEDS ORDERED: ATORVASTATIN 10 MG TAB PO SCH (09:00)
[2020-10-27] MEDS: ASPIRIN EC 81 MG TAB PO SCH (09:00)
[2020-10-27] MEDS: MULTIVITAMIN TAB PO SCH (09:00)
[2020-10-27] MEDS ORDERED: CEFTRIAXONE 1 GM/NS 50 ML 1 GM/50 ML BAG IV SCH (09:00)
[2020-10-27] MEDS: AMLODIPINE 5 MG TAB PO SCH (09:00)
[2020-10-27] MEDS ORDERED: ASPIRIN EC 81 MG TAB PO ONE (09:14)
[2020-10-27] MEDS ORDERED: CEFTRIAXONE/SWI 1gm 1 GM/10 ML SYR ONE (09:14)
[2020-10-27] MEDS ORDERED: MULTIVITAMIN TAB PO ONE (09:14)
[2020-10-27] MEDS ORDERED: CLOPIDOGREL 75 MG TABLET ONE (09:14)
[2020-10-27] MEDS ORDERED: AMLODIPINE 10 MG TAB ONE (09:14)
[2020-10-27] MEDS ORDERED: NA CHLORIDE 0.9% 50 ML ONE (09:15)
--- NOTE | 2020-10-27 11:04 | RAD REPORT ---
EXAM DESCRIPTION: Stone Protocol 10/26/2020 11:06 PM CDT CLINICAL HISTORY: 84 years, Female, urinary retention COMPARISON: None. TECHNIQUE: Multiple transaxial tomograms of the abdomen and pelvis were performed from the lung base s to the symphysis pubis 3 mm slice thickness at 3 mm interval reconstruction, without administration of IV and oral contrast. Multiplanar reformats in the sagittal and coronal plane were generated and reviewed. This exam was performed according to our departmental dose-optimization protocol, which includes auto mated exposure control, adjustment of the mA and/or kV according to patient size and/or use of iterat darien reconstruction technique. FINDINGS: The lack of IV and oral contrast limits evaluation of solid organs, subtle lesions cannot be excluded. The lung bases demonstrate minimal dependent atelectatic changes. There is mild prominence of the car diac silhouette. There is small trace pericardial effusion with the greatest width posteriorly measur ing 9.1 mm on image 15. There are coronary artery calcifications. Grossly the unopacified liver, gallbladder, pancreas and adrenal glands demonstrate to be within norm al limits, no significant focal lesions were identified. Small punctate calcification is noted with in the liver and spleen suggesting granulomas. The right kidney demonstrate to be unremarkable. There is no evidence for nephrolithiasis and/or hydr onephrosis. Minimal vascular calcifications are seen within the renal artery. The left kidney demonstrate somewhat cortical thinning mid/upper pole. Left proximal hydronephrosis w ith no definitive calculi within the left ureter. There is a upper pole left renal cyst measuring briseyda roximately 1.5 cm on image 34 and posterior lower pole left renal cyst measuring approximately 1.3 cm on image 59. Grossly the unopacified stomach, small bowel and large bowel demonstrate to be within normal limits. The large bowel demonstrate presence of significant fecal residue within the rectum and rectosigmoid colon. The rest of the large bowel demonstrate to be fluid-filled perhaps related to imminent diarrhe a and/or enema, correlate clinically. There is no evidence for significant small bowel dilatation/or free air. The stomach demonstrate to be within normal limits. The urinary bladder is decompressed with the presence of a Kingsley catheter in place. The uterus is abs ent. There are no adnexal masses The aorta demonstrate atherosclerotic disease extending into the alvaro ac arteries. There is no retroperitoneal lymphadenopathy. There is no evidence for ascites. Minimal haziness of the skin/subcutaneous tissue and peritoneal fat could correspond to edema. The bone wind ows demonstrate diffuse bony osteopenia. There is grade 1 degenerative spondylolisthesis at L5/S1. Th ere is degenerative disc disease at L4/L5. Incidentally is noted presence of a skin/subcutaneous hypo density anterior abdomen extending into the surface measuring approximately 2.4 cm on axial image 61- 65. IMPRESSION: Hepatic and splenic granulomas. Left hydronephrosis and mild left hydroureter with no definitive calculi within the left ureter. Left renal cysts. Kingsley catheter in a decompressed urinary bladder. Significant fecal residue within the rectum and rectosigmoid colon could correspond to constipation/i mpaction. The rest of the large bowel demonstrate to be fluid-filled perhaps related to imminent diar sommer and/or enema, correlate clinically. Minimal haziness of the skin/subcutaneous tissue and peritoneal fat could correspond to edema. Atherosclerotic disease of the aorta. Dependent atelectatic changes lung bases. Trace pericardial effusion. Electronically signed by: Usman Simmons MD 10/26/2020 11:19 PM CDT Due to temporary technical issues with the PACS/Fluency reporting system, reports are being signed by the in house radiologists without review as a courtesy to insure prompt reporting. The interpreting radiologist is fully responsible for the content of the report.
--- NOTE | 2020-10-27 11:22 | RAD REPORT ---
EXAM DESCRIPTION: MRI - Brain Wo Cont - 10/27/2020 10:27 am CLINICAL HISTORY: R/O CVA Headache, drowsiness COMPARISON: Head Brain Wo Cont dated 10/26/2020 TECHNIQUE: Multi-sequence, multiplanar MR imaging of the brain was performed without contrast. FINDINGS: No intracranial hemorrhage, hydrocephalus or extra-axial fluid collections.Moderate perive ntricular and deep white matter chronic microvascular ischemic changes. No edema or shift of midline structures. No findings to suspect brain mass. DWI is negative for acute CVA. Midline structures are normally formed. Mastoid air cells and paranasal sinuses are clear. IMPRESSION: Negative for acute CVA or other acute intracranial abnormality.
--- NOTE | 2020-10-27 17:48 | P.HP ---
Certification for Inpatient Patient admitted to: Inpatient With expected LOS: >2 Midnights Practitioner: I am a practitioner with admitting privileges, knowledge of patient current condition, hospital course, and medical plan of care. Services: Services provided to patient in accordance with Admission requirements found in Title 42 Section 412.3 of the Code of Federal Regulations Patient History Date of Service: 10/27/20 Reason for admission: FOUND ON FLOOR History of Present Illness: MS. QIU IS ELDERLY LADY WITH CAD, STENT, HYPOTHYROIDISM, DJD WHO WAS BROUGHT AFTER SHE WAS FOUND ON FLOOR BY FAMILY. SHE IS RESPONSIVE BUT DOES NOT KNOW MUCH HOW THIS HAPPENED. Allergies No Known Allergies Allergy (Verified 09/18/17 14:35) Home medications list reviewed: Yes Home Medications: Aspirin [Aspirin EC 81 MG] 81 mg PO DAILY 11/03/14 Pravastatin Sodium [Pravachol] 40 mg PO DAILY 11/03/14 Amlodipine Besylate 10 mg PO DAILY 08/04/16 Clopidogrel Bisulfate [Plavix*] 75 mg PO DAILY 08/04/16 Cranberry 4,200 mg PO DAILY 08/04/16 Glucosamine/Chondr Boyer A Sod [Osteo Bi-Flex Caplet] 2 each PO DAILY 08/04/16 Multivitamin [Multiple Vitamins] 1 each PO DAILY 08/04/16 Thyroid,Pork [Boiler/Chiller Technician Thyroid] 1 tab PO DAILY 10/27/20 - Past Medical/Surgical History Has patient received pneumonia vaccine in the past: Yes Diabetic: No -: Hyertension -: hyperlipidemia -: artritis -: Heart Stent 2014 -: partial Hysterectomy 1969 -: Right Rotator Cuff Repair 2003 - Social History Smoking Status: Current every day smoker Alcohol use: No CD- Drugs: No Caffeine use: Yes Place of Residence: Home Review of Systems 10-point ROS is otherwise unremarkable General: Weakness, Malaise Physical Examination - Vital Signs Temperature: 98.0 F Blood Pressure: 124/63 Pulse: 77 Respirations: 18 Pulse Ox (%): 99 - Physical Exam General: Oriented x2, Mild distress, Other (DRY SKIN AND MM. ) HEENT: Atraumatic, PERRLA, Mucous membr. moist/pink, EOMI, Sclerae nonicteric Neck: Supple, 2+ carotid pulse no bruit, No LAD, Without JVD or thyroid abnormality Respiratory: Clear to auscultation bilaterally, Normal air movement Cardiovascular: Regular rate/rhythm, Normal S1 S2 Gastrointestinal: Normal bowel sounds, No tenderness Musculoskeletal: No tenderness Integumentary: No rashes Neurological: Normal gait, Normal speech, Normal strength at 5/5 x4 extr, Normal tone, Normal affect Lymphatics: No axilla or inguinal lymphadenopathy - Studies Laboratory Data (last 24 hrs) 10/26/20 18:04: PT 11.0, INR 0.96 10/26/20 18:04: WBC 15.10 H, Hgb 10.1 L, Hct 32.1 L, Plt Count 270 10/26/20 18:04: Sodium 139, Potassium 2.8 L*, BUN 27 H, Creatinine 1.05, Glucose 117 H, Magnesium 2.3, Total Bilirubin 0.7, AST 71 H, ALT 50, Alkaline Phosphatase 89 Assessment and Plan - Problems (Diagnosis) (1) Dehydration Onset Date: 04/27/17 Current Visit: No Status: Acute Plan: IV FLUIDS. BICARB DRIP SHE HAD HIGH CPK IN 700S. DAILY LAB. (2) UTI (urinary tract infection) Onset Date: 04/27/17 Current Visit: No Status: Acute Plan: WBC HIGH BUT NOT MUCH IN URINE TO SUGGEST INFECTION. WILL FU DAILY LAB. (3) Weakness generalized Onset Date: 04/27/17 Current Visit: No Status: Acute Plan: FAMILY WILL MOVE HER TO SON'S HOME NOW. SHE IS NOT ABLE TO STAY HOME ALONE ANY LONGER. (4) Hypokalemia Current Visit: Yes Status: Acute (5) Rhabdomyolysis Current Visit: Yes Status: Acute Plan: MILD FROM BEING ON FLOOR. WILL FU DAILY. IV BICARB DRIP. (6) Anemia Current Visit: Yes Status: Acute Plan: MILD NOT A CANDIDATE FOR INVASIVE TESTING. FU LAB. - Advance Directives Does patient have a Living Will: No Does patient have a Durable POA for Healthcare: No
[2020-10-27] MEDS: ATORVASTATIN 10 MG TAB PO SCH (21:36)
[2020-10-28 00:36] LABS: Ferritin 217.8 ng/mL (8-388)
[2020-10-28 00:37] LABS: Thyroid Stimulating Hormone 53.3 uIU/mL (0.360-3.740)
[2020-10-28] MEDS: THYROID 30 MG TAB PO SCH (06:01)
[2020-10-28 06:27] LABS: Potassium 3.5 mmol/L (3.5-5.1)
[2020-10-28 06:29] LABS: Absolute Lymphocytes (CBC) 0.3 K/uL (0.7-4.9); Basophils % 0.1 % (0-1.3); Hematocrit 31.2 % (36.0-45.0); Lymphocytes % 2.6 % (15.3-44.8); MPV 8.9 fL (7.6-11.3); RBC Red Blood Cell Count 3.68 M/uL (3.86-4.86)
[2020-10-28] MEDS: NACHLORIDE 0.45% 1,000 ML with NA BICARB 8.4% 150 MEQ IV SCH ×2 (07:23)
[2020-10-28] MEDS: Osteo Bi-Flex Caplet PO SCH (09:00)
[2020-10-28] MEDS: Cranberry 500 MG Capsule PO SCH (09:00)
[2020-10-28] MEDS: ASPIRIN EC 81 MG TAB PO SCH (09:28)
[2020-10-28] MEDS: MULTIVITAMIN TAB PO SCH (09:28)
[2020-10-28] MEDS: ENOXAPARIN 40 MG/0.4 ML SQ SCH (09:28)
[2020-10-28] MEDS: AMLODIPINE 5 MG TAB PO SCH (09:28)
[2020-10-28] MEDS: CLOPIDOGREL 75 MG TABLET PO SCH (09:29)
[2020-10-28] MEDS: CEFTRIAXONE/SWI 1gm 1 GM/10 ML SYR IV SCH ×2 (09:29→21:02)
[2020-10-28 10:10] LABS: Platelet Estimate ADEQ
[2020-10-28 10:11] LABS: Anisocytosis SLIGHT; Blood Morphology Comment NOTED (NOT SEEN); Platelets, Giant PRESENT; Polychromasia SLIGHT
--- NOTE | 2020-10-28 13:05 | P.PN ---
Subjective Date of Service: 10/28/20 Chief Complaint: FOUND ON FLOOR Subjective: Improving STILL WEAK, SLOW TO RESPOND. NO CHEST PAIN. Review of Systems 10-point ROS is otherwise unremarkable General: Weakness, Malaise Physical Examination - Vital Signs Temperature: 99.0 F Blood Pressure: 130/59 Pulse: 87 Respirations: 15 Pulse Ox (%): 94 - Physical Exam General: Oriented x3, Cachectic, Mild distress, Other (SKIN IS DRY.) HEENT: Atraumatic, PERRLA, EOMI Neck: Supple, JVD not distended Respiratory: Clear to auscultation bilaterally, Normal air movement Cardiovascular: Regular rate/rhythm, Normal S1 S2 Gastrointestinal: Normal bowel sounds, No tenderness Musculoskeletal: No tenderness Integumentary: No rashes Neurological: Normal speech, Normal tone, Normal affect Lymphatics: No axilla or inguinal lymphadenopathy - Studies Medications List Reviewed: Yes Assessment And Plan - Current Problems (Diagnosis) (1) Dehydration Onset Date: 04/27/17 Current Visit: No Status: Acute Plan: IV FLUIDS. BICARB DRIP SHE HAD HIGH CPK IN 700S. DAILY LAB. IMPROVED. (2) UTI (urinary tract infection) Onset Date: 04/27/17 Current Visit: No Status: Acute Plan: WBC HIGH BUT NOT MUCH IN URINE TO SUGGEST INFECTION. WILL FU DAILY LAB. (3) Weakness generalized Onset Date: 04/27/17 Current Visit: No Status: Acute Plan: FAMILY WILL MOVE HER TO SON'S HOME NOW. SHE IS NOT ABLE TO STAY HOME ALONE ANY LONGER. (4) Hypokalemia Current Visit: Yes Status: Acute (5) Rhabdomyolysis Current Visit: Yes Status: Acute Plan: MILD FROM BEING ON FLOOR. WILL FU DAILY. IV BICARB DRIP. (6) Anemia Current Visit: Yes Status: Acute Plan: MILD NOT A CANDIDATE FOR INVASIVE TESTING. FU LAB. (7) Hypothyroid Current Visit: Yes Status: Chronic Plan: NEW ISSUE. THYROID - LEVOTHYROXIN- 50 MCG ONE DAY.
[2020-10-28] MEDS: Ringers Lactate 1,000 ML IV SCH (13:58)
[2020-10-28] MEDS: ATORVASTATIN 10 MG TAB PO SCH (21:02)
[2020-10-29 05:44] LABS: Absolute Lymphocytes (CBC) 0.5 K/uL (0.7-4.9); Basophils % 0.1 % (0-1.3); Hematocrit 30.7 % (36.0-45.0); Lymphocytes % 3.4 % (15.3-44.8); MPV 9.1 fL (7.6-11.3); RBC Red Blood Cell Count 3.72 M/uL (3.86-4.86)
[2020-10-29 05:53] LABS: Potassium 3.3 mmol/L (3.5-5.1)
[2020-10-29] MEDS: THYROID 30 MG TAB PO SCH (05:54)
[2020-10-29] MEDS: LEVOTHYROXINE SOD 0.05 MG TABLET PO SCH (05:54)
[2020-10-29 07:53] LABS: Anisocytosis 1+; Blood Morphology Comment NOTED (NOT SEEN); Platelet Estimate ADEQ; Polychromasia 1+
[2020-10-29] MEDS: Osteo Bi-Flex Caplet PO SCH (09:00)
[2020-10-29] MEDS: Cranberry 500 MG Capsule PO SCH (09:00)
[2020-10-29] MEDS ORDERED: MINERAL OIL ENEMA 135 ML BTL PR SCH (09:00)
[2020-10-29] MEDS: CLOPIDOGREL 75 MG TABLET PO SCH (11:24)
[2020-10-29] MEDS: MULTIVITAMIN TAB PO SCH (11:24)
[2020-10-29] MEDS: ASPIRIN EC 81 MG TAB PO SCH (11:24)
[2020-10-29] MEDS: AMLODIPINE 5 MG TAB PO SCH (11:24)
[2020-10-29] MEDS: CEFTRIAXONE/SWI 1gm 1 GM/10 ML SYR IV SCH (11:24)
[2020-10-29] MEDS: Ringers Lactate 1,000 ML IV SCH (11:25)
[2020-10-29] MEDS: ENOXAPARIN 40 MG/0.4 ML SQ SCH (11:26)
--- NOTE | 2020-10-29 11:49 | RAD REPORT ---
EXAM DESCRIPTION: CT - Thorax W/ Con - 10/29/2020 11:08 am CLINICAL HISTORY: Atelectasis COMPARISON: October 26, 2020 chest x-ray TECHNIQUE: Computed axial tomography of the chest was obtained. 100 cc Isovue 300 was administered i ntravenously. All CT scans are performed using dose optimization technique as appropriate and may include automated exposure control or mA/KV adjustment according to patient size. FINDINGS: Minimal bibasilar atelectasis. Bilateral calcified lung granulomas. No mediastinal or hilar lymphadenopathy is seen. Coronary arterial calcifications are present. Minimal pleural effusions. Moderate pericardial effusion. The thoracic aorta is ectatic Small amount of ascites within the upper abdomen IMPRESSION: Moderate pericardial effusion
--- NOTE | 2020-10-29 15:51 | P.PN ---
Subjective Date of Service: 10/29/20 Primary Care Provider: BETTER Chief Complaint: FOUND ON FLOOR Subjective: Improving STILL WEAK, SLOW TO RESPOND. NO CHEST PAIN. MS QIU IS FEELING BETTER. PER NURSE SHE HAS DIARRHEA, PASTY STOOL. STAGE 3 BEDSORE. Review of Systems 10-point ROS is otherwise unremarkable General: Weakness, Malaise Gastrointestinal: Diarrhea, As per HPI Physical Examination - Vital Signs Temperature: 98.2 F Blood Pressure: 108/55 Pulse: 84 Respirations: 24 Pulse Ox (%): 91 - Physical Exam General: Oriented x2, Mild distress, Confused HEENT: Atraumatic, PERRLA, EOMI Neck: Supple, JVD not distended Respiratory: Clear to auscultation bilaterally, Normal air movement Cardiovascular: Regular rate/rhythm, Normal S1 S2 Gastrointestinal: Normal bowel sounds, No tenderness Musculoskeletal: No tenderness Integumentary: No rashes Neurological: Normal speech, Normal tone, Normal affect Lymphatics: No axilla or inguinal lymphadenopathy - Studies Microbiology Data (last 24 hrs): 10/26/20 22:20 Clean Catch Urine [place] Count - Final No growth. 10/26/20 22:20 Clean Catch Urine - Final No growth. Medications List Reviewed: Yes Assessment And Plan - Current Problems (Diagnosis) (1) Dehydration Onset Date: 04/27/17 Current Visit: No Status: Acute Plan: IV FLUIDS. BICARB DRIP SHE HAD HIGH CPK IN 700S. DAILY LAB. IMPROVED. (2) UTI (urinary tract infection) Onset Date: 04/27/17 Current Visit: No Status: Acute Plan: WBC HIGH BUT NOT MUCH IN URINE TO SUGGEST INFECTION. WILL FU DAILY LAB. MILD EVIDENCE. STOP ROCEPHIN WBC IS RISING DESPITE ABX. (3) Weakness generalized Onset Date: 04/27/17 Current Visit: No Status: Acute Plan: FAMILY WILL MOVE HER TO SON'S HOME NOW. SHE IS NOT ABLE TO STAY HOME ALONE ANY LONGER. (4) Hypokalemia Current Visit: Yes Status: Acute (5) Rhabdomyolysis Current Visit: Yes Status: Acute Plan: MILD FROM BEING ON FLOOR. WILL FU DAILY. IV BICARB DRIP. (6) Anemia Current Visit: Yes Status: Acute Plan: MILD NOT A CANDIDATE FOR INVASIVE TESTING. FU LAB. (7) Hypothyroid Current Visit: Yes Status: Chronic Plan: NEW ISSUE. THYROID - LEVOTHYROXIN- 50 MCG ONE DAY. (8) Leukocytosis Current Visit: Yes Status: Acute Plan: ABX FO JAI IS NOT HELPING UTI EVIDENCE IS POOR. SHE MAY HAVE C DIFF. START VANCOMYCIN WHILE WE ARE WAITING FOR TEST REPORT. (9) Diarrhea Current Visit: Yes Status: Acute Plan: ABOVE. 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 SHE WILL GO TO [place] FROM HERE. APPLY POLYMEM AND OFF LOAD.
[2020-10-29] MEDS: VANCOMYCIN ORAL SOLN 250 MG/5 ML OSYR PO SCH ×2 (18:00→20:54)
[2020-10-29] MEDS: ATORVASTATIN 10 MG TAB PO SCH (20:54)
[2020-10-30] MEDS: VANCOMYCIN ORAL SOLN 250 MG/5 ML OSYR PO SCH ×5 (01:06→23:53)
[2020-10-30 05:46] LABS: Absolute Lymphocytes (CBC) 0.6 K/uL (0.7-4.9); Basophils % 0.2 % (0-1.3); Hematocrit 30.6 % (36.0-45.0); MPV 9.2 fL (7.6-11.3)
[2020-10-30 06:00] LABS: Potassium 3.2 mmol/L (3.5-5.1)
[2020-10-30] MEDS: THYROID 30 MG TAB PO SCH (06:12)
[2020-10-30] MEDS: LEVOTHYROXINE SOD 0.05 MG TABLET PO SCH (06:12)
[2020-10-30] MEDS: Ringers Lactate 1,000 ML IV SCH (06:15)
[2020-10-30] MEDS: Cranberry 500 MG Capsule PO SCH (09:00)
[2020-10-30] MEDS ORDERED: POTASSIUM CL SA 10 MEQ TAB PO SCH (09:00)
[2020-10-30] MEDS: Osteo Bi-Flex Caplet PO SCH (09:00)
[2020-10-30] MEDS: ASPIRIN EC 81 MG TAB PO SCH (09:04)
[2020-10-30] MEDS: POTASSIUM CL SA 10 MEQ TAB PO SCH ×2 (09:04→20:21)
[2020-10-30] MEDS: CLOPIDOGREL 75 MG TABLET PO SCH (09:04)
[2020-10-30] MEDS: MULTIVITAMIN TAB PO SCH (09:04)
[2020-10-30] MEDS: ENOXAPARIN 40 MG/0.4 ML SQ SCH (09:04)
--- NOTE | 2020-10-30 09:25 | P.PN ---
Subjective Date of Service: 10/30/20 Primary Care Provider: BETTER Chief Complaint: FEELS BETTER. Subjective: Improving STILL WEAK, SLOW TO RESPOND. NO CHEST PAIN. MS QIU IS FEELING BETTER. PER NURSE SHE HAS DIARRHEA, PASTY STOOL. STAGE 3 BEDSORE. SHE DOES NOT HAVE ANY COMPLAINTS. SHE HAS NO COUGH, NO CHEST PAIN, NO VOMITING, NO ABDOMEN PAIN AND NO DYSPNEA. Review of Systems 10-point ROS is otherwise unremarkable General: Weakness Physical Examination - Vital Signs Temperature: 97.6 F Blood Pressure: 120/58 Pulse: 82 Respirations: 18 Pulse Ox (%): 92 - Physical Exam General: In no apparent distress, Oriented x2, Mild distress HEENT: Atraumatic, PERRLA, EOMI Neck: Supple, JVD not distended Respiratory: Clear to auscultation bilaterally, Normal air movement Cardiovascular: Regular rate/rhythm, Normal S1 S2 Gastrointestinal: Normal bowel sounds, No tenderness Musculoskeletal: No tenderness Integumentary: No rashes Neurological: Normal speech, Normal tone, Normal affect Lymphatics: No axilla or inguinal lymphadenopathy - Studies Microbiology Data (last 24 hrs): 10/26/20 22:20 Clean Catch Urine [place] Count - Final No growth. 10/26/20 22:20 Clean Catch Urine - Final No growth. Medications List Reviewed: Yes Assessment And Plan - Current Problems (Diagnosis) (1) Dehydration Onset Date: 04/27/17 Current Visit: No Status: Acute Plan: IV FLUIDS. BICARB DRIP SHE HAD HIGH CPK IN 700S. DAILY LAB. IMPROVED. (2) UTI (urinary tract infection) Onset Date: 04/27/17 Current Visit: No Status: Acute Plan: WBC HIGH BUT NOT MUCH IN URINE TO SUGGEST INFECTION. WILL FU DAILY LAB. MILD EVIDENCE. STOP ROCEPHIN WBC IS RISING DESPITE ABX. (3) Weakness generalized Onset Date: 04/27/17 Current Visit: No Status: Acute Plan: FAMILY WILL MOVE HER TO SON'S HOME NOW. SHE IS NOT ABLE TO STAY HOME ALONE ANY LONGER. (4) Hypokalemia Current Visit: Yes Status: Acute (5) Rhabdomyolysis Current Visit: Yes Status: Acute Plan: MILD FROM BEING ON FLOOR. WILL FU DAILY. IV BICARB DRIP. (6) Anemia Current Visit: Yes Status: Acute Plan: MILD NOT A CANDIDATE FOR INVASIVE TESTING. FU LAB. (7) Hypothyroid Current Visit: Yes Status: Chronic Plan: NEW ISSUE. THYROID - LEVOTHYROXIN- 50 MCG ONE DAY. (8) Leukocytosis Current Visit: Yes Status: Acute Plan: ABX FO JAI IS NOT HELPING UTI EVIDENCE IS POOR. SHE MAY HAVE C DIFF. START VANCOMYCIN WHILE WE ARE WAITING FOR TEST REPORT. LEUKOCYTOSIS IS WORSE BUT SHE IS DOING GOOD. I WILL GIVE MORE TIME FOR VANCOMYCIN TO WORK SHE HAS PERICARDIAL EFFUSION BUT NO SYMPTOMS FROM IT. DO ECHO WITH DOPPLER. (9) Diarrhea Current Visit: Yes Status: Acute Plan: ABOVE. 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 SHE WILL GO TO [place] FROM HERE. APPLY POLYMEM AND OFF LOAD. (11) Pericardial effusion Current Visit: Yes Status: Suspected Plan: WILL DO ECHO WITH DOPPLER. THIS USUALLY IS NOT THE CAUSE OF WBC ELEVATION BUT WILL FU AND CHECK. I CALLED SON AND TALKED TO HIM ABOUT THE CHANGES.
[2020-10-30 09:31] LABS: Blood Morphology Comment NOT SEEN (NOT SEEN); Platelet Estimate ADEQ
[2020-10-30 09:32] LABS: Toxic Granulation PRESENT
[2020-10-30 11:58] LABS: C.diff Antigen/Toxin Ag pos : Tox pos (NEG : NEG)
[2020-10-30] MEDS: ATORVASTATIN 10 MG TAB PO SCH (20:21)
[2020-10-31] MEDS: Ringers Lactate 1,000 ML IV SCH ×3 (02:00→21:16)
[2020-10-31 05:56] LABS: BUN Blood Urea Nitrogen 17 mg/dL (7-18); Bicarbonate 29 mmol/L (21-32); Glucose Level 111 mg/dL (74-106); Potassium 3.8 mmol/L (3.5-5.1); Sodium Level 137 mmol/L (136-145)
[2020-10-31] MEDS: VANCOMYCIN ORAL SOLN 250 MG/5 ML OSYR PO SCH ×3 (06:14→17:50)
[2020-10-31] MEDS: LEVOTHYROXINE SOD 0.05 MG TABLET PO SCH (06:14)
[2020-10-31] MEDS: THYROID 30 MG TAB PO SCH (06:15)
[2020-10-31 06:32] LABS: Absolute Lymphocytes (CBC) 0.5 K/uL (0.7-4.9); Basophils % 0.1 % (0-1.3); Lymphocytes % 1.5 % (15.3-44.8); MPV 9.5 fL (7.6-11.3); RBC Red Blood Cell Count 3.78 M/uL (3.86-4.86)
[2020-10-31] MEDS: Osteo Bi-Flex Caplet PO SCH (09:00)
[2020-10-31] MEDS: Cranberry 500 MG Capsule PO SCH (09:00)
[2020-10-31] MEDS: CLOPIDOGREL 75 MG TABLET PO SCH (09:54)
[2020-10-31] MEDS: POTASSIUM CL SA 10 MEQ TAB PO SCH ×2 (09:54→21:16)
[2020-10-31] MEDS: ENOXAPARIN 40 MG/0.4 ML SQ SCH (09:54)
[2020-10-31] MEDS: MULTIVITAMIN TAB PO SCH (09:54)
[2020-10-31] MEDS: ASPIRIN EC 81 MG TAB PO SCH (09:54)
[2020-10-31 12:43] LABS: Platelet Estimate ADEQ
[2020-10-31 12:44] LABS: Blood Morphology Comment NOT SEEN (NOT SEEN)
--- NOTE | 2020-10-31 15:46 | P.PN ---
Subjective Date of Service: 10/31/20 Primary Care Provider: BETTER Chief Complaint: FEELS BETTER. Subjective: Improving SHE FEELS GREAT, SHE IS LOT STRONGER. SHE IS SITTING UP CRACKING JOKES. SHE HAS NO MORE DIARRHEA. Review of Systems 10-point ROS is otherwise unremarkable Physical Examination - Vital Signs Temperature: 100.3 F Blood Pressure: 133/67 Pulse: 104 Respirations: 16 Pulse Ox (%): 94 - Physical Exam General: Alert, In no apparent distress HEENT: Atraumatic, PERRLA, EOMI Neck: Supple, JVD not distended Respiratory: Clear to auscultation bilaterally, Normal air movement Cardiovascular: Regular rate/rhythm, Normal S1 S2 Gastrointestinal: Normal bowel sounds, No tenderness Musculoskeletal: No tenderness Integumentary: No rashes Neurological: Normal speech, Normal tone, Normal affect Lymphatics: No axilla or inguinal lymphadenopathy - Studies Medications List Reviewed: Yes Assessment And Plan - Current Problems (Diagnosis) (1) Dehydration Onset Date: 04/27/17 Current Visit: No Status: Acute Plan: IV FLUIDS. BICARB DRIP SHE HAD HIGH CPK IN 700S. DAILY LAB. IMPROVED. (2) UTI (urinary tract infection) Onset Date: 04/27/17 Current Visit: No Status: Acute Plan: WBC HIGH BUT NOT MUCH IN URINE TO SUGGEST INFECTION. WILL FU DAILY LAB. MILD EVIDENCE. STOP ROCEPHIN WBC IS RISING DESPITE ABX. (3) Weakness generalized Onset Date: 04/27/17 Current Visit: No Status: Acute Plan: FAMILY WILL MOVE HER TO SON'S HOME NOW. SHE IS NOT ABLE TO STAY HOME ALONE ANY LONGER. (4) Hypokalemia Current Visit: Yes Status: Acute (5) Rhabdomyolysis Current Visit: Yes Status: Acute Plan: MILD FROM BEING ON FLOOR. WILL FU DAILY. IV BICARB DRIP. (6) Anemia Current Visit: Yes Status: Acute Plan: MILD NOT A CANDIDATE FOR INVASIVE TESTING. FU LAB. (7) Hypothyroid Current Visit: Yes Status: Chronic Plan: NEW ISSUE. THYROID - LEVOTHYROXIN- 50 MCG ONE DAY. (8) Leukocytosis Current Visit: Yes Status: Acute Plan: ABX FO JAI IS NOT HELPING UTI EVIDENCE IS POOR. SHE MAY HAVE C DIFF. START VANCOMYCIN WHILE WE ARE WAITING FOR TEST REPORT. LEUKOCYTOSIS IS WORSE BUT SHE IS DOING GOOD. I WILL GIVE MORE TIME FOR VANCOMYCIN TO WORK SHE HAS PERICARDIAL EFFUSION BUT NO SYMPTOMS FROM IT. DO ECHO WITH DOPPLER. (9) Diarrhea Current Visit: Yes Status: Acute Plan: ABOVE. 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 SHE WILL GO TO [place] FROM HERE. APPLY POLYMEM AND OFF LOAD. (11) Pericardial effusion Current Visit: Yes Status: Suspected Plan: WILL DO ECHO WITH DOPPLER. THIS USUALLY IS NOT THE CAUSE OF WBC ELEVATION BUT WILL FU AND CHECK. I CALLED SON AND TALKED TO HIM ABOUT THE CHANGES. (12) C. difficile colitis Current Visit: Yes Status: Acute Plan: I STARTED HER ON VANCOMYCIN ORALLY DAY BEFORE CONFIRMATION OF C DIFF I SUSPECTED STRONGLY. HER WBC IS STILL RISING AND SHE STILL HAS FEVER DESPITE GREAT CLINICAL IMPROVEMENT. I SUSPECT WBC REACTION CAN LAG AT TIMES. WILL RAISE DOSE OF VANCOMYCIN AND WILL FU LAB DAILY. I TALKED TO BOTH SONS YESTERDAY AND TODAY TO EXPLAIN.
[2020-10-31] MEDS: METOPROLOL XL 25 MG TAB PO SCH (21:00)
[2020-10-31] MEDS: ATORVASTATIN 10 MG TAB PO SCH (21:17)
[2020-11-01] MEDS: LEVOTHYROXINE SOD 0.05 MG TABLET PO SCH (05:53)
[2020-11-01] MEDS: VANCOMYCIN ORAL SOLN 250 MG/5 ML OSYR PO SCH ×4 (05:56→17:34)
[2020-11-01] MEDS: THYROID 30 MG TAB PO SCH (05:57)
[2020-11-01 06:17] LABS: Absolute Lymphocytes (CBC) 0.5 K/uL (0.7-4.9); Basophils % 0.1 % (0-1.3); Hematocrit 29.9 % (36.0-45.0); Lymphocytes % 1.5 % (15.3-44.8); MPV 9.1 fL (7.6-11.3); RBC Red Blood Cell Count 3.63 M/uL (3.86-4.86)
[2020-11-01 06:20] LABS: Potassium 4.5 mmol/L (3.5-5.1)
[2020-11-01] MEDS: Osteo Bi-Flex Caplet PO SCH (09:00)
[2020-11-01] MEDS: POTASSIUM CL SA 10 MEQ TAB PO SCH (09:00)
[2020-11-01] MEDS: Cranberry 500 MG Capsule PO SCH (09:00)
[2020-11-01 09:05] LABS: Blood Morphology Comment NOT SEEN (NOT SEEN); Platelet Estimate ADEQ; Toxic Granulation PRESENT
[2020-11-01] MEDS: CLOPIDOGREL 75 MG TABLET PO SCH (09:42)
[2020-11-01] MEDS: MULTIVITAMIN TAB PO SCH (09:42)
[2020-11-01] MEDS: ASPIRIN EC 81 MG TAB PO SCH (09:42)
[2020-11-01] MEDS: ENOXAPARIN 40 MG/0.4 ML SQ SCH (09:43)
--- NOTE | 2020-11-01 14:42 | ECHO ---
HEIGHT: 5 ft 2 in WEIGHT: 134 lb 0 oz DATE OF STUDY: 11/01/[address]: 2-DIMENSIONAL: YES M.MODE: YES DOPPLER: YES COLOR FLOW: YES TDS: NO PORTABLE: NO DEFINITY: NO BUBBLE STUDY: NO DIAGNOSIS: PERICARDIAL EFFUSION CONFIRMATION CARDIAC HISTORY: CATHERIZATION: SURGERY: PROSTHETIC VALVE: PACEMAKER: MEASUREMENTS (cm) DIASTOLIC (NORMALS) SYSTOLIC (NORMALS) IVSd 0.9 (0.6-1.2) LA Diam 3.1 (1.9-4.0) LVEF 65% LVIDd 4.5 (3.5-5.7) LVIDs 2.9 (2.0-3.5) %FS 35% LVPWd 1.0 (0.6-1.2) Ao Diam 2.9 (2.0-3.7) 2 DIMENSIONAL ASSESSMENT: RIGHT ATRIUM: NORMAL LEFT ATRIUM: NORMAL RIGHT VENTRICLE: NORMAL LEFT VENTRICLE: NORMAL TRICUSPID VALVE: NORMAL MITRAL VALVE: NORMAL PULMONIC VALVE: NORMAL AORTIC VALVE: NORMAL PERICARDIAL EFFUSION: SMALL AORTIC ROOT: NORMAL LEFT VENTRICULAR WALL MOTION: NORMAL DOPPLER/COLOR FLOW: NORMAL COMMENTS: NORMAL LEFT VENTRICULAR EJECTION FRACTION 55-60%. NORMAL WALL MOTION. SMALL CIRCUMFERENTIAL PERICARDIAL EFFUSION. TECHNOLOGIST: Mari VALENTE
[2020-11-01] MEDS: Ringers Lactate 1,000 ML IV SCH (17:34)
--- NOTE | 2020-11-01 20:45 | P.PN ---
Subjective Date of Service: 11/01/20 Primary Care Provider: BETTER Chief Complaint: SHE IS STRONGER Subjective: Improving SHE FEELS GREAT, SHE IS LOT STRONGER. SHE IS SITTING UP CRACKING JOKES. SHE HAS NO MORE DIARRHEA. SHE HAS NO DIARRHEA, NO PAIN, AND NO FEVER ANY LONGER. Physical Examination - Vital Signs Temperature: 99.7 F Blood Pressure: 105/51 Pulse: 100 Respirations: 20 Pulse Ox (%): 99 - Physical Exam General: Alert, In no apparent distress HEENT: Atraumatic, PERRLA, EOMI Neck: Supple, JVD not distended Respiratory: Clear to auscultation bilaterally, Normal air movement Cardiovascular: Regular rate/rhythm, Normal S1 S2 Gastrointestinal: Normal bowel sounds, No tenderness Musculoskeletal: No tenderness Integumentary: No rashes Neurological: Normal speech, Normal tone, Normal affect Lymphatics: No axilla or inguinal lymphadenopathy - Studies Medications List Reviewed: Yes Assessment And Plan - Current Problems (Diagnosis) (1) Dehydration Onset Date: 04/27/17 Current Visit: No Status: Acute Plan: IV FLUIDS. CLEARED. (2) UTI (urinary tract infection) Onset Date: 04/27/17 Current Visit: No Status: Acute Plan: WBC HIGH BUT NOT MUCH IN URINE TO SUGGEST INFECTION. WILL FU DAILY LAB. MILD EVIDENCE. STOP ROCEPHIN WBC IS RISING DESPITE ABX. (3) Weakness generalized Onset Date: 04/27/17 Current Visit: No Status: Acute Plan: FAMILY WILL MOVE HER TO SON'S HOME NOW. SHE IS NOT ABLE TO STAY HOME ALONE ANY LONGER. (4) Hypokalemia Current Visit: Yes Status: Acute (5) Rhabdomyolysis Current Visit: Yes Status: Acute Plan: MILD FROM BEING ON FLOOR. WILL FU DAILY. IV BICARB DRIP. (6) Anemia Current Visit: Yes Status: Acute Plan: MILD NOT A CANDIDATE FOR INVASIVE TESTING. FU LAB. (7) Hypothyroid Current Visit: Yes Status: Chronic Plan: NEW ISSUE. THYROID - LEVOTHYROXIN- 50 MCG ONE DAY. (8) Leukocytosis Current Visit: Yes Status: Acute Plan: ABX FO JAI IS NOT HELPING UTI EVIDENCE IS POOR. SHE MAY HAVE C DIFF. START VANCOMYCIN WHILE WE ARE WAITING FOR TEST REPORT. LEUKOCYTOSIS IS WORSE BUT SHE IS DOING GOOD. I WILL GIVE MORE TIME FOR VANCOMYCIN TO WORK SHE HAS PERICARDIAL EFFUSION BUT NO SYMPTOMS FROM IT. DO ECHO WITH DOPPLER. (9) Diarrhea Current Visit: Yes Status: Acute Plan: ABOVE. 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 SHE WILL GO TO [place] FROM HERE. APPLY POLYMEM AND OFF LOAD. (11) Pericardial effusion Current Visit: Yes Status: Suspected Plan: WILL DO ECHO WITH DOPPLER. THIS USUALLY IS NOT THE CAUSE OF WBC ELEVATION BUT WILL FU AND CHECK. I CALLED SON AND TALKED TO HIM ABOUT THE CHANGES. (12) C. difficile colitis Current Visit: Yes Status: Acute Plan: I STARTED HER ON VANCOMYCIN ORALLY DAY BEFORE CONFIRMATION OF C DIFF I SUSPECTED STRONGLY. HER WBC IS STILL RISING AND SHE STILL HAS FEVER DESPITE GREAT CLINICAL IMPROVEMENT. I SUSPECT WBC REACTION CAN LAG AT TIMES. WILL RAISE DOSE OF VANCOMYCIN AND WILL FU LAB DAILY. I TALKED TO BOTH SONS YESTERDAY AND TODAY TO EXPLAIN. WBC IS SLIGHTLY HIGHER BUT FEVER IS NOT THERE ANY LONGER. SHE HAS NO SYMPTOMS. SHE IS STRONGER. I STILL SUSPECT WBC COUNT CORRECTION I SLOWER THAN HER PROGRESS CLINICALLY. SHE IS EATING GOOD.
[2020-11-01] MEDS: ATORVASTATIN 10 MG TAB PO SCH (21:00)
[2020-11-01] MEDS: METOPROLOL XL 25 MG TAB PO SCH (21:00)
[2020-11-01 22:05] LABS: Albumin, (SPE) 2.8 g/dL (3.8-4.8); Alpha-1-Globulins 0.5 g/dL (0.2-0.3); Alpha-2-Globulins 0.8 g/dL (0.5-0.9); Gamma Globulins 0.5 g/dL (0.8-1.7); INTERPRETATION REPORT
[2020-11-02] MEDS: VANCOMYCIN ORAL SOLN 250 MG/5 ML OSYR PO SCH ×5 (00:13→23:31)
[2020-11-02] MEDS: THYROID 30 MG TAB PO SCH (05:52)
[2020-11-02] MEDS: LEVOTHYROXINE SOD 0.05 MG TABLET PO SCH (05:53)
[2020-11-02 07:16] LABS: Absolute Lymphocytes (CBC) 0.4 K/uL (0.7-4.9); Basophils % 0.2 % (0-1.3); Hematocrit 28.5 % (36.0-45.0); Lymphocytes % 1.7 % (15.3-44.8); MPV 9.2 fL (7.6-11.3); RBC Red Blood Cell Count 3.47 M/uL (3.86-4.86)
[2020-11-02 07:39] LABS: Potassium 4.7 mmol/L (3.5-5.1)
[2020-11-02] MEDS: Ringers Lactate 1,000 ML IV SCH ×2 (07:53→13:27)
[2020-11-02] MEDS: IPRATROPIUM BROM 0.5MG/2.5ML NEB SCH ×3 (08:00→20:00)
[2020-11-02] MEDS: ALBUTEROL 2.5 MG/3 ML NEB SOL NEB SCH ×3 (08:00→20:00)
[2020-11-02] MEDS: Cranberry 500 MG Capsule PO SCH (09:00)
[2020-11-02] MEDS: Osteo Bi-Flex Caplet PO SCH (09:00)
[2020-11-02] MEDS: CLOPIDOGREL 75 MG TABLET PO SCH (09:38)
[2020-11-02] MEDS: MULTIVITAMIN TAB PO SCH (09:38)
[2020-11-02] MEDS: ASPIRIN EC 81 MG TAB PO SCH (09:38)
[2020-11-02] MEDS: ENOXAPARIN 40 MG/0.4 ML SQ SCH (09:39)
--- NOTE | 2020-11-02 12:51 | P.PN ---
Subjective Date of Service: 11/02/20 Primary Care Provider: CASEY Chief Complaint: SHE IS STRONGER Subjective: Improving SHE FEELS GREAT, SHE IS LOT STRONGER. SHE IS SITTING UP CRACKING JOKES. SHE HAS NO MORE DIARRHEA. SHE HAS NO DIARRHEA, NO PAIN, AND NO FEVER ANY LONGER. JUST WOKE UP. SOME LETHARGY TODAY. Review of Systems 10-point ROS is otherwise unremarkable General: Weakness Physical Examination - Vital Signs Temperature: 98.8 F Blood Pressure: 129/62 Pulse: 100 Respirations: 19 Pulse Ox (%): 95 - Physical Exam General: Oriented x2, Mild distress HEENT: Atraumatic, PERRLA, EOMI Neck: Supple, JVD not distended Respiratory: Clear to auscultation bilaterally, Normal air movement Cardiovascular: Regular rate/rhythm, Normal S1 S2 Gastrointestinal: Normal bowel sounds, No tenderness Musculoskeletal: No tenderness Integumentary: No rashes Neurological: Normal speech, Normal tone, Normal affect Lymphatics: No axilla or inguinal lymphadenopathy - Studies Medications List Reviewed: Yes Assessment And Plan - Current Problems (Diagnosis) (1) Dehydration Onset Date: 04/27/17 Current Visit: No Status: Acute Plan: IV FLUIDS. CLEARED. (2) UTI (urinary tract infection) Onset Date: 04/27/17 Current Visit: No Status: Acute Plan: WBC HIGH BUT NOT MUCH IN URINE TO SUGGEST INFECTION. WILL FU DAILY LAB. MILD EVIDENCE. STOP ROCEPHIN WBC IS RISING DESPITE ABX. (3) Weakness generalized Onset Date: 04/27/17 Current Visit: No Status: Acute Plan: FAMILY WILL MOVE HER TO SON'S HOME NOW. SHE IS NOT ABLE TO STAY HOME ALONE ANY LONGER. (4) Hypokalemia Current Visit: Yes Status: Acute (5) Rhabdomyolysis Current Visit: Yes Status: Acute Plan: MILD FROM BEING ON FLOOR. WILL FU DAILY. IV BICARB DRIP. (6) Anemia Current Visit: Yes Status: Acute Plan: MILD NOT A CANDIDATE FOR INVASIVE TESTING. FU LAB. (7) Hypothyroid Current Visit: Yes Status: Chronic Plan: NEW ISSUE. THYROID - LEVOTHYROXIN- 50 MCG ONE DAY. (8) Leukocytosis Current Visit: Yes Status: Acute Plan: WBC IS DOWN TODAY. IT WAS FROM C DIFF COLITIS. (9) Diarrhea Current Visit: Yes Status: Acute Plan: ABOVE. 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 SHE WILL GO TO [place] FROM HERE. APPLY POLYMEM AND OFF LOAD. (11) Pericardial effusion Current Visit: Yes Status: Suspected Plan: WILL DO ECHO WITH DOPPLER. THIS USUALLY IS NOT THE CAUSE OF WBC ELEVATION BUT WILL FU AND CHECK. I CALLED SON AND TALKED TO HIM ABOUT THE CHANGES. ECHO RULES OUT MAJOR ISSUE. THERE IS A THIN RIM OF EFFUSION. SHOULD NOT WORRY ABOUT IT FOR NOW. AT 84 WITH COLITIS THIS IS A MINOR ISSUE. (12) C. difficile colitis Current Visit: Yes Status: Acute Plan: WBC IS DOWN FROM 31K TO 23K. SHOULD CONTINUE TO GO DOWN. (13) Hypoxia Current Visit: Yes Status: Chronic Plan: THIS HAS UNCHANGED SINCE ADMISSION. START NEBS. SHE DOES NOT SHOW SYMPTOMS EXCEPT FOR SHOWING THAT SHE NEEDS OXYGEN.
[2020-11-02] MEDS: METOPROLOL XL 25 MG TAB PO SCH (21:25)
[2020-11-02] MEDS: ATORVASTATIN 10 MG TAB PO SCH (21:25)
[2020-11-02] MEDS ORDERED: FUROSEMIDE 20 MG/ 2ML VIAL IV ONE (23:22)
[2020-11-03] MEDS: IPRATROPIUM BROM 0.5MG/2.5ML NEB SCH ×4 (02:20→19:30)
[2020-11-03] MEDS: ALBUTEROL 2.5 MG/3 ML NEB SOL NEB SCH ×4 (02:20→19:30)
[2020-11-03] MEDS: LEVOTHYROXINE SOD 0.05 MG TABLET PO SCH (05:31)
[2020-11-03] MEDS: VANCOMYCIN ORAL SOLN 250 MG/5 ML OSYR PO SCH ×3 (05:31→17:23)
[2020-11-03] MEDS: THYROID 30 MG TAB PO SCH (05:31)
[2020-11-03 06:40] LABS: Absolute Lymphocytes (CBC) 0.5 K/uL (0.7-4.9); Basophils % 0.4 % (0-1.3); Hematocrit 27.6 % (36.0-45.0); Lymphocytes % 3.2 % (15.3-44.8); MPV 8.9 fL (7.6-11.3); RBC Red Blood Cell Count 3.34 M/uL (3.86-4.86)
[2020-11-03 07:05] LABS: Potassium 4.2 mmol/L (3.5-5.1)
--- NOTE | 2020-11-03 08:19 | P.PN ---
Subjective Date of Service: 11/03/20 Primary Care Provider: CASEY Chief Complaint: back pain today SHE FEELS GREAT, SHE IS LOT STRONGER. SHE IS SITTING UP CRACKING JOKES. SHE HAS NO MORE DIARRHEA. SHE HAS NO DIARRHEA, NO PAIN, AND NO FEVER ANY LONGER. JUST WOKE UP. SOME LETHARGY TODAY. SHE HAS BACK PAIN IN THE HOSPITAL BED. SOME FATIGUE. OXYGENATION HAS WORSENED. I ORDERED CT CHEST STAT LAST NIGHT. Physical Examination - Vital Signs Temperature: 98.1 F Blood Pressure: 114/56 Pulse: 88 Respirations: 24 Pulse Ox (%): 92 - Physical Exam General: Oriented x2, Mild distress HEENT: Atraumatic, PERRLA, EOMI Neck: Supple, JVD not distended Respiratory: Clear to auscultation bilaterally, Normal air movement Cardiovascular: Regular rate/rhythm, Normal S1 S2 Gastrointestinal: Normal bowel sounds, No tenderness Musculoskeletal: No tenderness Integumentary: No rashes Neurological: Normal speech, Normal tone, Normal affect Lymphatics: No axilla or inguinal lymphadenopathy - Studies Medications List Reviewed: Yes Assessment And Plan - Current Problems (Diagnosis) (1) UTI (urinary tract infection) Onset Date: 04/27/17 Current Visit: No Status: Acute Plan: WBC HIGH BUT NOT MUCH IN URINE TO SUGGEST INFECTION. WILL FU DAILY LAB. MILD EVIDENCE. STOP ROCEPHIN WBC IS RISING DESPITE ABX. (2) Weakness generalized Onset Date: 04/27/17 Current Visit: No Status: Acute Plan: FAMILY WILL MOVE HER TO SON'S HOME NOW. SHE IS NOT ABLE TO STAY HOME ALONE ANY LONGER. (3) Hypokalemia Current Visit: Yes Status: Acute (4) Rhabdomyolysis Current Visit: Yes Status: Acute Plan: MILD FROM BEING ON FLOOR. WILL FU DAILY. IV BICARB DRIP. (5) Anemia Current Visit: Yes Status: Acute Plan: MILD NOT A CANDIDATE FOR INVASIVE TESTING. FU LAB. (6) Hypothyroid Current Visit: Yes Status: Chronic Plan: NEW ISSUE. THYROID - LEVOTHYROXIN- 50 MCG ONE DAY. (7) Leukocytosis Current Visit: Yes Status: Acute Plan: WBC IS DOWN TODAY. IT WAS FROM C DIFF COLITIS. (8) Diarrhea Current Visit: Yes Status: Acute Plan: ABOVE. (9) Bed sore, stage 3 Current Visit: Yes Status: Chronic Plan: THIS CAN BE GOING ON FOR A WHILE SHE IS WEAK, FATIGUED ADN WORSE AT HOME. SHE WILL GO TO [place] FROM HERE. APPLY POLYMEM AND OFF LOAD. (10) Pericardial effusion Current Visit: Yes Status: Suspected Plan: WILL DO ECHO WITH DOPPLER. THIS USUALLY IS NOT THE CAUSE OF WBC ELEVATION BUT WILL FU AND CHECK. I CALLED SON AND TALKED TO HIM ABOUT THE CHANGES. ECHO RULES OUT MAJOR ISSUE. THERE IS A THIN RIM OF EFFUSION. SHOULD NOT WORRY ABOUT IT FOR NOW. AT 84 WITH COLITIS THIS IS A MINOR ISSUE. (11) C. difficile colitis Current Visit: Yes Status: Acute Plan: WBC IS DOWN FROM 31K TO 23K. SHOULD CONTINUE TO GO DOWN. (12) Hypoxia Current Visit: Yes Status: Chronic Plan: THIS HAS UNCHANGED SINCE ADMISSION. START NEBS. SHE DOES NOT SHOW SYMPTOMS EXCEPT FOR SHOWING THAT SHE NEEDS OXYGEN. (13) Diastolic congestive heart failure Current Visit: Yes Status: Acute Plan: SHE WAS GETTING VERY GENTLE HYDRATION. STILL AT HER AGE SHE DID NOT TOLERATE. SHE IS NOT EATING WELL. LASIX IV BID KCL POBID. ] ECHO DONE ALREADY. SL IV. CALLED [facility] LAST NIGHT.
[2020-11-03] MEDS: Cranberry 500 MG Capsule PO SCH (09:00)
[2020-11-03] MEDS: Osteo Bi-Flex Caplet PO SCH (09:00)
[2020-11-03] MEDS: MULTIVITAMIN TAB PO SCH (09:59)
[2020-11-03] MEDS: ASPIRIN EC 81 MG TAB PO SCH (09:59)
[2020-11-03] MEDS: MEGESTROL 40 MG TAB PO SCH ×2 (09:59→21:50)
[2020-11-03] MEDS: LIDOCAINE 4% PATCH TOP SCH (10:00)
[2020-11-03] MEDS: FUROSEMIDE 20 MG/ 2ML VIAL IV SCH ×2 (10:00→16:32)
[2020-11-03] MEDS: POTASSIUM CL SA 10 MEQ TAB PO SCH ×2 (10:00→21:00)
[2020-11-03] MEDS: CLOPIDOGREL 75 MG TABLET PO SCH (10:00)
--- NOTE | 2020-11-03 10:43 | RAD REPORT ---
EXAM DESCRIPTION: CT - Chest For Pe Angio - 11/02/2020 10:29 pm CLINICAL HISTORY: Hypoxia. COMPARISON: None. TECHNIQUE: CTA of the chest was performed following intravenous administration of iodinated contrast . Axial soft tissue and lung window, and coronal and sagittal soft tissue window reconstructions were created and sent to PACS. 3D postprocessing was performed on an independent workstation, with images sent to PACS for subsequen t review. This exam was performed according to our departmental dose-optimization program, which includes autom ated exposure control, adjustment of the mA and/or kV according to patient size and/or use of iterati ve reconstruction technique. FINDINGS: Vascular: The pulmonary arteries are well-opacified to the segmental level. No CT evidence of acute pulmonary thromboembolism. Mildly prominent main pulmonary trunk, measuring up to 3.1 cm in diameter. No evidence of aortic aneurysm or dissection. Moderate calcific atherosclerosis. Lungs and pleura: Medium sized bilateral pleural effusions. Mild adjacent compressive atelectasis. Fa int mosaic attenuation throughout the lungs. No definite infiltrate. Few small bilateral calcified gr anulomata. No pneumothorax. Mediastinum and neck: No mediastinal lymphadenopathy by CT size criteria. Partially calcified right h ilar lymph nodes, likely sequela of remote prior healed granulomatous disease. Poorly visualized thyr oid gland. Cardiac: No cardiomegaly or pericardial effusion. Abdomen: No significant upper abdominal abnormality identified. Musculoskeletal: No concerning osseous abnormality. Osteopenia. IMPRESSION: 1. No CTA evidence of acute pulmonary thromboembolism. 2. Medium sized bilateral pleural effusions with mild adjacent compressive atelectasis. 3. Faint mosaic attenuation throughout the lungs. Correlate for mild pulmonary edema. 4. Mildly prominent main pulmonary trunk, which can be seen with pulmonary arterial hypertension. Electronically signed by: Macarena Isidro MD 11/02/2020 11:03 PM CDT Due to temporary technical issues with the PACS/Fluency reporting system, reports are being signed by the in house radiologist without review as a courtesy to ensure prompt reporting. The interpreting r adiologist is fully responsible for the content of the report.
--- NOTE | 2020-11-03 12:12 | RAD REPORT ---
EXAM DESCRIPTION: RAD - Lumbar Spine 3 Views - 11/03/2020 10:30 am CLINICAL HISTORY: PAIN COMPARISON: Chest For Pe Angio dated 11/02/2020; [facility] Protocol dated 10/26/2020 FINDINGS: Grade 1 anterolisthesis of L5 on S1. There is disc height loss at L4-5 and L5-S1 as well. Osteopenia. No acute fractures seen. Contrast is present within the left collecting system. Abdominal aortic atherosclerosis. Nonspecific bowel distention. IMPRESSION: No acute fracture of the lumbar spine.
[2020-11-03] MEDS: ATORVASTATIN 10 MG TAB PO SCH (21:49)
[2020-11-03] MEDS: METOPROLOL XL 25 MG TAB PO SCH (21:50)
[2020-11-04] MEDS: VANCOMYCIN ORAL SOLN 250 MG/5 ML OSYR PO SCH ×4 (00:49→16:18)
[2020-11-04] MEDS: ALBUTEROL 2.5 MG/3 ML NEB SOL NEB SCH ×5 (01:50→23:25)
[2020-11-04] MEDS: IPRATROPIUM BROM 0.5MG/2.5ML NEB SCH ×5 (01:50→23:25)
[2020-11-04] MEDS: TRAMADOL HCL 50 MG TAB PO PRN ×2 (01:54→21:30)
[2020-11-04] MEDS ORDERED: HYDROMORPHONE HCL 1 MG/ML INJ IV ONE (04:47)
[2020-11-04] MEDS: LEVOTHYROXINE SOD 0.05 MG TABLET PO SCH (06:06)
[2020-11-04 08:45] LABS: Absolute Lymphocytes (CBC) 0.8 K/uL (0.7-4.9); Basophils % 0.3 % (0-1.3); Hematocrit 28.9 % (36.0-45.0); Lymphocytes % 5.5 % (15.3-44.8); MPV 8.5 fL (7.6-11.3); RBC Red Blood Cell Count 3.48 M/uL (3.86-4.86)
[2020-11-04 08:59] LABS: Potassium 4.3 mmol/L (3.5-5.1)
[2020-11-04] MEDS: POTASSIUM CL SA 10 MEQ TAB PO SCH ×2 (09:00→21:30)
[2020-11-04] MEDS: MEGESTROL 40 MG TAB PO SCH ×2 (09:00→21:38)
[2020-11-04] MEDS: MULTIVITAMIN TAB PO SCH (09:00)
[2020-11-04] MEDS: CLOPIDOGREL 75 MG TABLET PO SCH (09:00)
[2020-11-04] MEDS: Cranberry 500 MG Capsule PO SCH (09:00)
[2020-11-04] MEDS: Osteo Bi-Flex Caplet PO SCH (09:00)
[2020-11-04] MEDS: ASPIRIN EC 81 MG TAB PO SCH (09:00)
[2020-11-04 09:07] LABS: Albumin 1.8 g/dL (3.4-5.0); Bilirubin Direct 0.1 mg/dL (0-0.2); Bilirubin Total 0.3 mg/dL (0.2-1.0)
[2020-11-04] MEDS: FUROSEMIDE 20 MG/ 2ML VIAL IV SCH ×2 (09:51→16:19)
[2020-11-04] MEDS: LIDOCAINE 4% PATCH TOP SCH (09:56)
[2020-11-04] MEDS ORDERED: NALOXONE 0.4 MG/ML VIAL IV ONE (12:32)
--- NOTE | 2020-11-04 12:42 | P.PN ---
Subjective Date of Service: 11/04/20 Primary Care Provider: BETTER Chief Complaint: LETHARGIC Subjective: C/O voiced LAST NIGHT NURSE CALLED ME SAYING THAT SHE IS IN SEVERE LOWER BACK PAIN AND BOTH TRAMADOL AND LIDODERM PATCH ARE NOT HELPING. I GAVE HER DILAUDID 1 MG OXYGENATION AND BP WERE STABLE. SHE THIS AM IS LETHARGIC AND DOES NOT COMMUNICATE. I TALKED TO NURSE AND WE WILL TRY NARCAN IV. IF NOT BETTER SHE WILL GET MRI OF BRAIN AND SPINE BOTH. Review of Systems General: Weakness, Malaise Neurological: Weakness, Confusion Physical Examination - Vital Signs Temperature: 98.3 F Blood Pressure: 108/60 Pulse: 88 Respirations: 16 Pulse Ox (%): 96 - Physical Exam General: Cooperative, Cachectic, Confused, Unresponsive (UNTIL PRESSURE AND THEN SHE OPENS EYES, DOES NOT COMMUNICATE.) HEENT: Atraumatic, PERRLA, EOMI Neck: Supple, JVD not distended Respiratory: Clear to auscultation bilaterally, Normal air movement Cardiovascular: Regular rate/rhythm, Normal S1 S2 Gastrointestinal: Normal bowel sounds, No tenderness Musculoskeletal: No tenderness Integumentary: No rashes Neurological: Normal strength at 5/5 x4 extr (WEAK BUT MOVES ALL LIMBS. ), Abnormal speech, Abnormal tone Lymphatics: No axilla or inguinal lymphadenopathy - Studies Medications List Reviewed: Yes Assessment And Plan - Current Problems (Diagnosis) (1) Weakness generalized Onset Date: 04/27/17 Current Visit: No Status: Acute Plan: FAMILY WILL MOVE HER TO SON'S HOME NOW. SHE IS NOT ABLE TO STAY HOME ALONE ANY LONGER. (2) Hypokalemia Current Visit: Yes Status: Acute (3) Rhabdomyolysis Current Visit: Yes Status: Acute Plan: MILD FROM BEING ON FLOOR. WILL FU DAILY. IV BICARB DRIP. (4) Anemia Current Visit: Yes Status: Acute Plan: MILD NOT A CANDIDATE FOR INVASIVE TESTING. FU LAB. (5) Hypothyroid Current Visit: Yes Status: Chronic Plan: NEW ISSUE. THYROID - LEVOTHYROXIN- 50 MCG ONE DAY. (6) Leukocytosis Current Visit: Yes Status: Acute Plan: WBC IS DOWN TODAY. IT WAS FROM C DIFF COLITIS. (7) Diarrhea Current Visit: Yes Status: Acute Plan: ABOVE. (8) Bed sore, stage 3 Current Visit: Yes Status: Chronic Plan: THIS CAN BE GOING ON FOR A WHILE SHE IS WEAK, FATIGUED ADN WORSE AT HOME. SHE WILL GO TO AL FROM HERE. APPLY POLYMEM AND OFF LOAD. (9) Pericardial effusion Current Visit: Yes Status: Suspected Plan: WILL DO ECHO WITH DOPPLER. THIS USUALLY IS NOT THE CAUSE OF WBC ELEVATION BUT WILL FU AND CHECK. I CALLED SON AND TALKED TO HIM ABOUT THE CHANGES. ECHO RULES OUT MAJOR ISSUE. THERE IS A THIN RIM OF EFFUSION. SHOULD NOT WORRY ABOUT IT FOR NOW. AT 84 WITH COLITIS THIS IS A MINOR ISSUE. (10) C. difficile colitis Current Visit: Yes Status: Acute Plan: WBC IS DOWN FROM 31K TO 23K. SHOULD CONTINUE TO GO DOWN. (11) Hypoxia Current Visit: Yes Status: Chronic Plan: THIS HAS UNCHANGED SINCE ADMISSION. START NEBS. SHE DOES NOT SHOW SYMPTOMS EXCEPT FOR SHOWING THAT SHE NEEDS OXYGEN. (12) Diastolic congestive heart failure Current Visit: Yes Status: Acute Plan: SHE WAS GETTING VERY GENTLE HYDRATION. STILL AT HER AGE SHE DID NOT TOLERATE. SHE IS NOT EATING WELL. LASIX IV BID KCL POBID. ] ECHO DONE ALREADY. SL IV. CALLED ORDERS LAST NIGHT. (13) Altered mental status Current Visit: Yes Status: Acute Plan: SMALL DOSE OF DILAUDID MAY HAVE CAUSED THIS. AFTER NARCAN IF NOT BETER MRI OF BRAIN IS TO BE DONE. RULE OUT STROKE. I TALKED TO SON ABOUT HER WORSENING CONDITION DESPITE ALL EFFORTS. HE UNDERSTANDS. HE WANTS DNR STATUS- HE HAS MPO- [facility]. MRI OF SPINE TO BE DONE FOR SEVERE PAIN. WE CAN'T DISCHARGE HER WHEN SHE IS IN WORSE CONDITION. HOSPICE MAY BE NEARING WITH HER DWINDLING CONDITION.
--- NOTE | 2020-11-04 15:39 | RAD REPORT ---
EXAM DESCRIPTION: MRI - Lumbar Spine Wo Con - 11/04/2020 3:03 pm CLINICAL HISTORY: PAIN COMPARISON: Lumbar Spine 3 Views dated 11/03/2020; Stone Protocol dated 10/26/2020 TECHNIQUE: Sagittal T1-weighted, T2-weighted and T2-STIR weighted sequences were obtained. Axial T1 -weighted and heavily T2-weighted sequenceswere obtained through the lumbar disc levels. FINDINGS: Exam has substantial motion degradation limitation in spite of repeating multiple sequence s. Due to discomfort, patient had reduced ability to cooperate with the examination. Lumbar bodies are normal in height. No compression fractures seen. No marrow edema or marrow replacin g process seen. Anterior subluxation of L5 on S1 noted matching the prior day plain film. No pars int erarticularis defects confirmed. Patient does have prominent L5-S1 facet joint degenerative change th at would explain the grade 1 anterior subluxation. Lumbar bodies are normal in height and otherwise n ormal in alignment. No suspicious marrow signal. No paraspinal masses. Incidental note of hemangioma in L2. Conus is normal with no clumping or thickening of the cauda equina. T12-L1 level: Disc is thinned and desiccated. No central spinal stenosis. Mild disc bulge changes are present across the central canal and into each exit foramen. Mild foraminal encroachment present at each site. L1-2 level: Disc is desiccated. Mild bulging of disc material is present. No central spinal stenosis or significant foraminal encroachment. There is loss in disc height. L2-3 level: No herniation or significant disc bulge. No canal or foramen stenosis. L3-4 level: Loss in disc height noted. Mild foramen and central canal disc bulge. Facet degenerative change and ligamentous thickening are present. Canal is borderline stenotic at 10 mm. No significant foraminal stenosis. L4-5 level: Disc is desiccated with slight loss in disc height. Canal is borderline stenotic at 10 mm . Facet degenerative change and ligamentous thickening are present. No left foraminal stenosis. Disc bulge and bony hypertrophy changes cause moderate right foraminal stenosis. L5-S1 level: L5 anterior subluxation creates a pseudo bulge of disc material across the central canal and into each exit foramen. Disc is thinned and desiccated with near complete loss in disc height. A dvanced facet joint degenerative changes are present. Canal is stenotic at 7 mm at the superior endpl ate S1 level due to the subluxation. There is also moderately severe foraminal stenosis. IMPRESSION: No compression fracture, abnormal marrow signal pattern or other finding of emergent con cern within a vertebral body. Patient has grade 1 anterior subluxation of L5 on S1 secondary to severe facet joint degenerative leatha nge. This results in moderately severe bilateral foraminal stenosis as well as central canal stenosis to 7 mm at the superior S1 level. Additional degenerative changes are present on this motion degraded study not appearing to cause any significant canal or foramen stenosis.
[2020-11-04] MEDS: METOPROLOL XL 25 MG TAB PO SCH (21:00)
[2020-11-04] MEDS: ATORVASTATIN 10 MG TAB PO SCH (21:29)
[2020-11-04] MEDS ORDERED: KETOROLAC 30 MG/ML INJ IV ONE (23:58)
[2020-11-05] MEDS: ALBUTEROL 2.5 MG/3 ML NEB SOL NEB SCH ×4 (03:40→20:40)
[2020-11-05] MEDS: IPRATROPIUM BROM 0.5MG/2.5ML NEB SCH ×4 (03:40→20:40)
[2020-11-05] MEDS: VANCOMYCIN ORAL SOLN 250 MG/5 ML OSYR PO SCH ×3 (05:47→13:59)
[2020-11-05] MEDS: LEVOTHYROXINE SOD 0.05 MG TABLET PO SCH (05:53)
[2020-11-05 08:50] LABS: Absolute Lymphocytes (CBC) 0.7 K/uL (0.7-4.9); Basophils % 0.2 % (0-1.3); Lymphocytes % 5.9 % (15.3-44.8); MPV 8.1 fL (7.6-11.3); RBC Red Blood Cell Count 3.24 M/uL (3.86-4.86)
[2020-11-05] MEDS: Osteo Bi-Flex Caplet PO SCH (09:00)
[2020-11-05] MEDS: Cranberry 500 MG Capsule PO SCH (09:00)
[2020-11-05] MEDS ORDERED: FUROSEMIDE 20 MG TABLET PO SCH (09:00)
[2020-11-05] MEDS: POTASSIUM CL SA 10 MEQ TAB PO SCH ×2 (09:18→20:42)
[2020-11-05] MEDS: ASPIRIN EC 81 MG TAB PO SCH (09:18)
[2020-11-05] MEDS: LIDOCAINE 4% PATCH TOP SCH (09:18)
[2020-11-05] MEDS: MULTIVITAMIN TAB PO SCH (09:18)
[2020-11-05] MEDS: MEGESTROL 40 MG TAB PO SCH ×2 (09:18→20:43)
[2020-11-05] MEDS: CLOPIDOGREL 75 MG TABLET PO SCH (09:18)
[2020-11-05] MEDS: HYDROCODONE/APAP 5/325 MG TAB PO PRN ×2 (09:20→20:43)
[2020-11-05 10:27] LABS: Potassium 4.4 mmol/L (3.5-5.1)
[2020-11-05] MEDS: TRAMADOL HCL 50 MG TAB PO PRN (16:59)
[2020-11-05] MEDS: ATORVASTATIN 10 MG TAB PO SCH (20:42)
[2020-11-05] MEDS: METOPROLOL XL 25 MG TAB PO SCH (20:43)
[2020-11-05 20:54] VITALS: BP 106/51; TEMP 97.6
[2020-11-05 21:35] VITALS: O2SAT 98
--- NOTE | 2020-11-12 08:25 | P.DS ---
Admission Date: 10/26/20 Discharge Date: 11/12/20 Primary Care Provider: BETTER Disposition: HOSPICE-HOME Discharge Condition: SERIOUS Reason for Admission: LETHARGIC - Problems (1) Weakness generalized Onset Date: 04/27/17 Status: Acute (2) Hypokalemia Status: Acute (3) Rhabdomyolysis Status: Acute (4) Anemia Status: Acute (5) Hypothyroid Status: Chronic (6) Leukocytosis Status: Acute (7) Diarrhea Status: Acute (8) Bed sore, stage 3 Status: Chronic (9) Pericardial effusion Status: Suspected (10) C. difficile colitis Status: Acute (11) Hypoxia Status: Chronic (12) Diastolic congestive heart failure Status: Acute (13) Altered mental status Status: Acute Brief History of Present Illness: MS. QIU IS ELDERLY LADY WITH CAD, STENT, HYPOTHYROIDISM, DJD WHO WAS BROUGHT AFTER SHE WAS FOUND ON FLOOR BY FAMILY. SHE IS RESPONSIVE BUT DOES NOT KNOW MUCH HOW THIS HAPPENED. Hospital Course: BARTOLO IS ELDERLY LADY WITH MANY MEDICAL ISSUES, SHE COMES WITH SEPSIS, INITIALLY LOOKED UTI BUT WAS NOT TOTALLY CONVINCING. SHE LATER WAS FOUND TO HAVE C DIFF COLIITIS WHEN SHE STARTED TO HAVE DIARRHEA. INITIALLY SHE DID NOT RESPOND TO VANCOMYCIN 125 MG BUT ONLY RESPONDED WHEN I RAISED VANCOMYCIN ORAL TO 500 MG QID. SHE IMPROVED BUT HER BODY IS FRAIL , WEAK, SHE HAS HYPOXIA THAT WAS THOUGHT TO BE FROM DIASTOLIC CHF ACUTE. I ADVISED HOSPICE SHE MAY NOT DO WELL IN A LONG RUN. FAMILY UNDERSTOOD AND PICKED CHOICE HOSPICE THEY ARE AWARE OF SOME WORKERS. Vital Signs/Physical Exam: Temp Pulse Resp BP Pulse Ox 97.6 F 75 16 106/51 L 95 11/05/20 20:00 11/05/20 20:00 11/05/20 20:00 11/05/20 20:00 11/05/20 20:43 Laboratory Data at Discharge: WBC 11.30 K/uL (4.3-10.9) H D 11/05/20 08:20 Hgb 8.4 g/dL (12.0-15.0) L 11/05/20 08:20 Hct 27.0 % (36.0-45.0) L 11/05/20 08:20 Plt Count 363 K/uL (152-406) 11/05/20 08:20 PT 11.0 SECONDS (9.5-12.5) 10/26/20 18:04 INR 0.96 10/26/20 18:04 Sodium 136 mmol/L (136-145) 11/05/20 09:52 Potassium 4.4 mmol/L (3.5-5.1) 11/05/20 09:52 BUN 21 mg/dL (7-18) H 11/05/20 09:52 Creatinine 0.87 mg/dL (0.55-1.3) 11/05/20 09:52 Glucose 102 mg/dL (74-106) 11/05/20 09:52 Magnesium 2.3 mg/dL (1.8-2.4) 10/26/20 18:04 Total Bilirubin 0.3 mg/dL (0.2-1.0) 11/04/20 08:34 AST 18 U/L (15-37) 11/04/20 08:34 ALT 24 U/L (12-78) 11/04/20 08:34 Alkaline Phosphatase 102 U/L (45-117) 11/04/20 08:34 Home Medications: Aspirin [Aspirin EC 81 MG] 81 mg PO DAILY 11/03/14 Clopidogrel Bisulfate [Plavix*] 75 mg PO DAILY 08/04/16 Glucosamine/Chondr Boyer A Sod [Osteo Bi-Flex Caplet] 2 each PO DAILY 08/04/16 Multivitamin [Multiple Vitamins] 1 each PO DAILY 08/04/16 Furosemide [Lasix*] 20 mg PO DAILY #90 tab 11/05/20 Levothyroxine [Synthroid*] 0.05 mg PO DAILYAC #90 tablet 11/05/20 Lidocaine 4% Patch [Lidoderm 5% Patch*] 1 patch TD DAILY #30 patch 11/05/20 Potassium Oral Tab [Klor-Con 10 mEq Tab*] 10 meq PO BID #60 tab 11/05/20 New Medications: Potassium Oral Tab [Klor-Con 10 mEq Tab*] 10 meq PO BID #60 tab Furosemide [Lasix*] 20 mg PO DAILY #90 tab Lidocaine 4% Patch [Lidoderm 5% Patch*] 1 patch TD DAILY #30 patch Levothyroxine [Synthroid*] 0.05 mg PO DAILYAC #90 tablet Physician Discharge Instructions: PROBLEM: Rhabdomyolysis, Dehydration GOAL: Clear understanding of disease process E-scripts sent to [facility] [place]. INSTRUCTIONS: Discharge home. Family already has hospice in place. Follow up with Dr. Burnett as needed. Diet: Heart Healthy Activity: As tolerated IMMUNIZATION Influenza Vaccine Indicated: Influenza Vaccine Given: Date Given: Pneumonia Vaccine Indicated: No Pneumonia Vaccine Given: Date Given: Followup: Cyril Burnett MD [Primary Care Provider] - 1 Week (Follow up in office in 1 week. Call to schedule an appointment.)
== END 2020-11-05 22:47 | disposition hospice, home (50) | DRG 871 ==
LOC: ER 15:10 → ERHOLD 23:04 → 2ND 10-27 15:11
PROVIDERS: ADMIT Internal Medicine; ATTEND Internal Medicine
DX: A41.9 Sepsis, unspecified organism (principal); L89.303 Pressure ulcer of unspecified buttock, stage 3; I50.31 Acute diastolic (congestive) heart failure; M62.82 Rhabdomyolysis; R64 Cachexia; I31.3 Pericardial effusion (noninflammatory); N39.0 Urinary tract infection, site not specified; A04.72 Enterocolitis due to Clostridium difficile, not specified as recurrent; E86.0 Dehydration; E87.6 Hypokalemia; D64.9 Anemia, unspecified; I25.10 Atherosclerotic heart disease of native coronary artery without angina pectoris; E03.9 Hypothyroidism, unspecified; M19.90 Unspecified osteoarthritis, unspecified site; E78.5 Hyperlipidemia, unspecified; Z68.24 Body mass index [BMI] 24.0-24.9, adult; R09.02 Hypoxemia; I11.0 Hypertensive heart disease with heart failure; M54.9 Dorsalgia, unspecified; R41.82 Altered mental status, unspecified; F17.210 Nicotine dependence, cigarettes, uncomplicated; Z95.5 Presence of coronary angioplasty implant and graft; Z91.040 Latex allergy status; Z20.822 Contact with and (suspected) exposure to COVID-19
CPT/HCPCS: 36415; 51702; 70450; 70551; 71045; 71260; 71275; 72100; 72148; 74018; 74176; 76377; 80048; 80053; 80076; 81003; 81015; 82274; 82550; 82607; 82728; 82747; 83605; 83735; 83880; 84145; 84165; 84439; 84443; 84484; 85025; 85610; 87040; 87086; 87088; 87324; 87449; 93306; 94640; 96361; 96365; 96375; 97110; 97162; 97530; 99285; J0696; J1170; J1650; J1940; J2310; J3480; J7040; J7120; Q9967; U0003